=== PATIENT | female | born 1945 | race American Indian/Alaskan Native ===

== ENCOUNTER 2019-03-27 15:28 | Emergency (ER) | payer MEDICARE ==
[~2019-03-27] VITALS: Ht 157.5 cm; Wt 89.0 kg
[~2019-03-27 15:28] MED LIST: ASPI-1264 PO; CARCD120C PO; CYAN-51 PO; FEXO180T94 PO; OMEP20TA23 PO; UBID60CA6 PO
[2019-03-27 15:53] LABS: BASOPHILS # (AUTO) 0.1 X10'3 (0-0.2); BASOPHILS % (AUTO) 0.8 % (0-1); EOSINOPHILS # (AUTO) 0.2 X10'3 (0-0.9); EOSINOPHILS % (AUTO) 2.2 % (0-6); HEMATOCRIT 39.6 % (35.0-45.0); HEMOGLOBIN 13.5 g/dl (12.0-16.0); LYMPHOCYTES # (AUTO) 1.9 X10'3 (1.1-4.8); LYMPHOCYTES % (AUTO) 28.1 % (21-51); MEAN CORPUSCULAR HEMOGLOBIN 30.9 PG (27.0-31.0); MEAN CORPUSCULAR HGB CONC 34.1 g/dL (33.0-36.5); MEAN CORPUSCULAR VOLUME 90.5 FL (78-98); MEAN PLATELET VOLUME 8.4 FL (7.4-10.4); MONOCYTES # (AUTO) 0.6 X10'3 (0-0.9); MONOCYTES % (AUTO) 8.9 % (2-12); PLATELET COUNT 224 X10'3 (140-440); RED BLOOD COUNT 4.38 X10'6 (4.20-5.60); RED CELL DISTRIBUTION WIDTH 13.2 % (11.5-14.5); WHITE BLOOD COUNT 6.7 X10'3 (4.5-11.0)
[2019-03-27 16:04] VITALS: BP 126/65
[2019-03-27 16:10] LABS: ALANINE AMINOTRANSFERASE 29 U/L (12-78); ALBUMIN 3.7 G/DL (3.4-5.0); ALBUMIN/GLOBULIN RATIO 1.2 (1.1-1.5); ALKALINE PHOSPHATASE 69 IU/L (46-116); ANION GAP 8 (8-16); ASPARTATE AMINO TRANSFERASE 14 U/L (10-37); BILIRUBIN,TOTAL 0.3 MG/DL (0.1-1.0); BLOOD UREA NITROGEN 19 MG/DL (7-18); BUN/CREATININE RATIO 17.9 (6.6-38.0); CALCIUM 8.5 MG/DL (8.5-10.1); CHLORIDE 107 MMOL/L (99-107); CREATININE 1.06 MG/DL (0.40-0.90); GLUCOSE 143 MG/DL (70-104); MAGNESIUM 2.2 MG/DL (1.5-2.4); POTASSIUM 4.2 MMOL/L (3.5-5.1); SODIUM 142 MMOL/L (135-145); TOTAL CARBON DIOXIDE 27.4 MMOL/L (24-32); TOTAL PROTEIN 6.8 G/DL (6.4-8.2); eGFR 51 ML/MIN
== END 2019-03-27 18:00 | disposition home or self-care (01) ==
LOC: ER 15:28
DX: R07.89 Other chest pain (principal); I48.91 Unspecified atrial fibrillation; Z90.710 Acquired absence of both cervix and uterus; Z88.0 Allergy status to penicillin; Z91.018 Allergy to other foods; Z91.040 Latex allergy status; Z88.5 Allergy status to narcotic agent; Z79.82 Long term (current) use of aspirin; Z79.899 Other long term (current) drug therapy
CPT/HCPCS: 36415; 71045; 72070; 80053; 83735; 83880; 84484; 85025; 93005; 99284

== ENCOUNTER 2021-04-22 19:37 | Inpatient (IN) | payer MEDICARE ==
[~2021-04-22] VITALS: Ht 157.5 cm; Wt 79.3 kg
[~2021-04-22 19:37] MED LIST changes: -UBID60CA6 PO; +UBID60CA8 PO
[2021-04-22] MEDS ORDERED: dexamethasone 4mg/ml inj IV ONE (21:20)
[2021-04-22 22:00] LABS: BASOPHILS % (AUTO) 0.2 % (0-1); EOSINOPHILS % (AUTO) 0.3 % (0-6); HEMATOCRIT 39.9 % (35.0-45.0); HEMOGLOBIN 13.4 g/dl (12.0-16.0); LYMPHOCYTES # (AUTO) 0.4 X10'3 (1.1-4.8); LYMPHOCYTES % (AUTO) 4.1 % (21-51); MEAN CORPUSCULAR HEMOGLOBIN 30.8 PG (27.0-31.0); MEAN CORPUSCULAR HGB CONC 33.7 g/dL (33.0-36.5); MEAN CORPUSCULAR VOLUME 91.4 FL (78-98); MEAN PLATELET VOLUME 8.2 FL (7.4-10.4); MONOCYTES # (AUTO) 0.5 X10'3 (0-0.9); MONOCYTES % (AUTO) 6.4 % (2-12); NEUTROPHILS # (AUTO) 7.7 X10'3 (1.8-7.7); PLATELET COUNT 213 X10'3 (140-440); RED BLOOD COUNT 4.36 X10'6 (4.20-5.60); RED CELL DISTRIBUTION WIDTH 13.2 % (11.5-14.5); WHITE BLOOD COUNT 8.6 X10'3 (4.5-11.0)
[2021-04-22 22:06] LABS: D-DIMER 0.41 MG/L FEU (0-0.50)
[2021-04-22 23:01] LABS: CLARITY,URINE SLIGHTLY CLOUDY (Clear); COLOR,URINE YELLOW (Yellow); GLUCOSE, URINE NEGATIVE (Neg); KETONES,URINE 15 mg/dl (Neg); LEUKOCYTE ESTERASE ,URINE TRACE (Neg); NITRITES, URINE NEGATIVE (Neg); OCCULT BLOOD,URINE NEGATIVE (Neg); PROTEIN,URINE 100 mg/dl (Neg)
[2021-04-22 23:02] LABS: UA COLLECTION TYPE VOIDED
[2021-04-22] MEDS ORDERED: APIX2.5T PO (23:10)
[2021-04-22 23:23] LABS: ALANINE AMINOTRANSFERASE 26 U/L (12-78); ALBUMIN 3.2 G/DL (3.4-5.0); ALBUMIN/GLOBULIN RATIO 0.8 (1.1-1.5); ALKALINE PHOSPHATASE 79 IU/L (46-116); ANION GAP 12 (8-16); ASPARTATE AMINO TRANSFERASE 34 U/L (10-37); BILIRUBIN,TOTAL 0.4 MG/DL (0.1-1.0); BLOOD UREA NITROGEN 22 MG/DL (7-18); C-REACTIVE PROTEIN 18.34 MG/DL (0.0-0.5); CALCIUM 8.6 MG/DL (8.5-10.1); CHLORIDE 102 MMOL/L (99-107); CREATININE 1.16 MG/DL (0.40-0.90); GLUCOSE 126 MG/DL (70-104); LACTATE DEHYDROGENASE 285 U/L (81-234); MAGNESIUM 2.3 MG/DL (1.5-2.4); POTASSIUM 4.2 MMOL/L (3.5-5.1); SODIUM 138 MMOL/L (135-145); TOTAL CARBON DIOXIDE 24.4 MMOL/L (24-32); TOTAL PROTEIN 7.1 G/DL (6.4-8.2); eGFR 45 ML/MIN
[2021-04-22 23:28] LABS: MUCUS STRANDS MANY /LPF (Neg)
[2021-04-22 23:32] LABS: BACTERIA,URINE FEW /HPF (Neg); RBC,URINE NONE SEEN /HPF (0-2)
[2021-04-22 23:33] LABS: CAL OXALATE CRYSTALS 2+ /HPF (NEGATIVE); SQUAMOUS EPITHELIAL CELL,UR FEW /LPF (FEW)
[2021-04-23] MEDS ORDERED: CefTRIAXone/D5W-Rocephin 1gm 50 ML IV ONE (00:15)
[2021-04-23] MEDS ORDERED: REMDESIVIR INJ 100 MG in normal saline 100ml IV soln 80 ML IV SCH (00:15)
[2021-04-23] MEDS ORDERED: REMDESIVIR INJ 200 MG in normal saline 100ml IV soln 60 ML IV ONE (00:15)
[2021-04-23] MEDS ORDERED: ondansetron/PF 4mg/2ml inj IV PRN (00:30)
[2021-04-23] MEDS ORDERED: bisacodyl 10mg suppository rectal RC PRN (00:30)
[2021-04-23] MEDS: normal saline 1000ml 1,000 ML IV SCH ×3 (00:30→20:30)
[2021-04-23] MEDS ORDERED: acetaminophen 325mg tablet PO PRN (00:30)
[2021-04-23] MEDS ORDERED: ondansetron 4mg rapidly disintigrating tab PO PRN (00:30)
[2021-04-23] MEDS ORDERED: mag hydrox/Alum hydrox/simeth 30ml oral suspension PO PRN (00:30)
[2021-04-23] MEDS ORDERED: magnesium hydroxide 30ml (MOM) UD suspension PO PRN (00:30)
[2021-04-23] MEDS ORDERED: acetaminophen 650mg rectal suppository RC PRN (00:30)
[2021-04-23] MEDS ORDERED: ALBUTEROL INHALER 1 PUFF/90 MCG INHALER IH PRN (00:40)
--- NOTE | 2021-04-23 00:49 | NUR ---
PT NOTES THAT REACTION TO MORPHINE IS NAUSEA
[2021-04-23 05:53] LABS: HEMOGLOBIN A1C 5.5 % (4.5-6.2)
[2021-04-23] MEDS ORDERED: nitrofuran/nitrofuran macrocrysal 100 MG capsule PO SCH (08:00)
[2021-04-23] MEDS: apixaban 2.5mg tablet PO SCH ×2 (09:16→21:35)
[2021-04-23] MEDS: pantoprazole 40mg Tablet.DR PO SCH (09:17)
[2021-04-23] MEDS: diltiazem CD 120mg capsule (once-daily) PO SCH (09:17)
[2021-04-23] MEDS: docusate sod 100mg capsule PO SCH ×2 (09:17→20:00)
[2021-04-23] MEDS: CefTRIAXone/D5W-Rocephin 1gm 50 ML IV SCH (09:19)
[2021-04-23] MEDS: dexamethasone inj 6 MG in normal saline 50ml IV soln 50 ML IV SCH ×2 (09:19→22:21)
[2021-04-23] MEDS: REMDESIVIR 100 MG in NS 100ml IVPB IV SCH (12:24)
[2021-04-23 15:30] LABS: PARTIAL THROMBOPLASTIN TIME 28 SECONDS (22-32)
[2021-04-23 15:42] LABS: PHOSPHORUS 2.9 MG/DL (2.3-4.5)
--- NOTE | 2021-04-23 18:54 | NUR ---
pt spo2 85 on 6Lnc, placed in semi fowlers. placed pt on simple mask at 10L and pt had coughing episode and desat to 73 with rr 38. coached on slowing breathing down to help with recovery. pt spo2 83% with rr 28 and maintained for 10 minutes. placed pt on nrb at 15L. pt rr 26, spo2 88% and maintaining for 10 minutes. pt feels sob and taking shallow breathes to "prevent coughing". will continue to monitor and attempt to titrate o2 down.
--- NOTE | 2021-04-23 18:55 | NUR ---
ABG ORDERED PER PROTOCOL AND PAGED MD. SPO2 89% ON 15L NRB.
--- NOTE | 2021-04-23 19:47 | NUR ---
pt up to bsc. coughing episode started. pt desat to 62% on nrb. pt reports feels like "spasm in throat causing cough". pt recovered to 98% on 15L nrb
[2021-04-23] MEDS ORDERED: temazepam 15mg capsule PO PRN (21:00)
[2021-04-23 21:19] LABS: ABG BASE EXCESS -1.5 mmol/L (-2.0-2.0); ABG HCO3 22.2 mmol/L (22.0-26.0); ABG OXYGEN SATURATION 88.4 % (94-97); ABG PCO2 (T) 33.8 mmHg (32.0-45.0); ABG PO2 (T) 52.8 mmHg (75.0-100.0); FCOHb 0.3 % (0.0-3.9); FLOW 15 L/min; FMetHb 0.2 % (0.0-1.5); PATIENT TEMPERATURE 36.7; TOTAL HEMOGLOBIN 13.1 G/dl (12.0-16.0)
[2021-04-23] MEDS: lactobacillus rhamnosus 10,000 MMU CELLS/CAPSULE PO SCH (21:36)
--- NOTE | 2021-04-23 22:00 | NUR ---
CALLED PHARMACY REGARDING DECADRON NOT DELIVERED TO ER YET. PHARMACY TO BRING DOWN
[2021-04-24 04:24] LABS: BASOPHILS % (AUTO) 0.1 % (0-1); EOSINOPHILS % (AUTO) 0 % (0-6); HEMATOCRIT 39.5 % (35.0-45.0); LYMPHOCYTES # (AUTO) 0.5 X10'3 (1.1-4.8); LYMPHOCYTES % (AUTO) 3.7 % (21-51); MEAN CORPUSCULAR HGB CONC 32.8 g/dL (33.0-36.5); MEAN CORPUSCULAR VOLUME 91.5 FL (78-98); MEAN PLATELET VOLUME 8.3 FL (7.4-10.4); MONOCYTES # (AUTO) 0.7 X10'3 (0-0.9); MONOCYTES % (AUTO) 5.2 % (2-12); NEUTROPHILS # (AUTO) 12.6 X10'3 (1.8-7.7); PLATELET COUNT 261 X10'3 (140-440); RED BLOOD COUNT 4.32 X10'6 (4.20-5.60); RED CELL DISTRIBUTION WIDTH 13.2 % (11.5-14.5); WHITE BLOOD COUNT 13.8 X10'3 (4.5-11.0)
[2021-04-24 04:34] LABS: ALANINE AMINOTRANSFERASE 24 U/L (12-78); ALBUMIN 2.8 G/DL (3.4-5.0); ALBUMIN/GLOBULIN RATIO 0.8 (1.1-1.5); ALKALINE PHOSPHATASE 75 IU/L (46-116); ANION GAP 9 (8-16); ASPARTATE AMINO TRANSFERASE 26 U/L (10-37); BILIRUBIN,TOTAL 0.2 MG/DL (0.1-1.0); BLOOD UREA NITROGEN 23 MG/DL (7-18); BUN/CREATININE RATIO 23.7 (6.6-38.0); CALCIUM 8.4 MG/DL (8.5-10.1); CHLORIDE 107 MMOL/L (99-107); CHOL/HDL RATIO 3.4 (0.00-4.99); CHOLESTEROL 182 MG/DL (0-200); CREATININE 0.97 MG/DL (0.40-0.90); GLUCOSE 142 MG/DL (70-104); HDL CHOLESTEROL 53 MG/DL (35-60); LDL CHOLESTEROL 108 MG/DL (50-100); POTASSIUM 4.5 MMOL/L (3.5-5.1); SODIUM 143 MMOL/L (135-145); TOTAL CARBON DIOXIDE 26.6 MMOL/L (24-32); TOTAL PROTEIN 6.5 G/DL (6.4-8.2); TRIGLYCERIDES 55 MG/DL (20-135); eGFR 56 ML/MIN
[2021-04-24] MEDS: docusate sod 100mg capsule PO SCH ×2 (09:39→20:00)
[2021-04-24] MEDS: pantoprazole 40mg Tablet.DR PO SCH (09:39)
[2021-04-24] MEDS: dexamethasone inj 6 MG in normal saline 50ml IV soln 50 ML IV SCH ×2 (09:39→21:16)
[2021-04-24] MEDS: diltiazem CD 120mg capsule (once-daily) PO SCH (09:39)
[2021-04-24] MEDS: CefTRIAXone/D5W-Rocephin 1gm 50 ML IV SCH (09:39)
[2021-04-24] MEDS: lactobacillus rhamnosus 10,000 MMU CELLS/CAPSULE PO SCH (09:39)
[2021-04-24] MEDS ORDERED: potassium Cl 40MEQ/1/2NS 520ml 520 ML IV PRN (10:10)
[2021-04-24] MEDS ORDERED: magnesium 4gm in 100ml NS 100 ML IV PRN (10:10)
[2021-04-24] MEDS ORDERED: potassium Cl 20 mEq SR tablet PO PRN ×2 (10:10)
[2021-04-24] MEDS ORDERED: magnesium Cl slow-release 64mg tablet PO PRN (10:10)
[2021-04-24] MEDS: apixaban 2.5mg tablet PO SCH ×2 (10:14→21:16)
[2021-04-24] MEDS: REMDESIVIR 100 MG in NS 100ml IVPB IV SCH (11:48)
--- NOTE | 2021-04-24 13:05 | NUR ---
RT notified of decreased oxygen level. RT at bedside requesting order for high flow. paged awaiting call
--- NOTE | 2021-04-24 17:35 | NUR ---
RECEIVED REPORT FROM LOURDES PANCHAL
[2021-04-24 18:00] VITALS: BP 141/75
--- NOTE | 2021-04-24 18:13 | NUR ---
GAVE REPORT TO November,
[2021-04-24] MEDS: K and/or MAG REPLACEMENT MC SCH (20:00)
[2021-04-24 21:00] VITALS: BP 130/77
[2021-04-25 01:00] VITALS: BP 113/74
[2021-04-25 05:00] VITALS: BP 139/75
[2021-04-25 05:41] LABS: BASOPHILS # (AUTO) 0.1 X10'3 (0-0.2); BASOPHILS % (AUTO) 1.1 % (0-1); EOSINOPHILS % (AUTO) 0 % (0-6); HEMATOCRIT 39.3 % (35.0-45.0); HEMOGLOBIN 13.1 g/dl (12.0-16.0); LYMPHOCYTES # (AUTO) 0.5 X10'3 (1.1-4.8); LYMPHOCYTES % (AUTO) 4.3 % (21-51); MEAN CORPUSCULAR HEMOGLOBIN 30.3 PG (27.0-31.0); MEAN CORPUSCULAR HGB CONC 33.2 g/dL (33.0-36.5); MEAN CORPUSCULAR VOLUME 91.1 FL (78-98); MEAN PLATELET VOLUME 8.7 FL (7.4-10.4); MONOCYTES # (AUTO) 0.4 X10'3 (0-0.9); MONOCYTES % (AUTO) 3.6 % (2-12); NEUTROPHILS # (AUTO) 10.8 X10'3 (1.8-7.7); PLATELET COUNT 283 X10'3 (140-440); RED BLOOD COUNT 4.31 X10'6 (4.20-5.60); RED CELL DISTRIBUTION WIDTH 13.2 % (11.5-14.5); WHITE BLOOD COUNT 11.9 X10'3 (4.5-11.0)
[2021-04-25 06:13] LABS: ALANINE AMINOTRANSFERASE 27 U/L (12-78); ALBUMIN 2.6 G/DL (3.4-5.0); ALBUMIN/GLOBULIN RATIO 0.7 (1.1-1.5); ALKALINE PHOSPHATASE 76 IU/L (46-116); ANION GAP 8 (8-16); ASPARTATE AMINO TRANSFERASE 29 U/L (10-37); BILIRUBIN,TOTAL 0.2 MG/DL (0.1-1.0); BLOOD UREA NITROGEN 28 MG/DL (7-18); CALCIUM 8.4 MG/DL (8.5-10.1); CHLORIDE 109 MMOL/L (99-107); CREATININE 1.12 MG/DL (0.40-0.90); GLUCOSE 145 MG/DL (70-104); MAGNESIUM 2.3 MG/DL (1.5-2.4); PHOSPHORUS 3.5 MG/DL (2.3-4.5); POTASSIUM 4.7 MMOL/L (3.5-5.1); SODIUM 144 MMOL/L (135-145); TOTAL CARBON DIOXIDE 27.4 MMOL/L (24-32); TOTAL PROTEIN 6.2 G/DL (6.4-8.2); eGFR 47 ML/MIN
[2021-04-25 06:36] LABS: D-DIMER 0.53 MG/L FEU (0-0.50)
--- NOTE | 2021-04-25 06:54 | NUR ---
Patient in room ORTHO 4006. I have received report from LOURDES AMEZCUA and had the opportunity to ask questions and assume patient care.
[2021-04-25 07:21] LABS: LACTATE DEHYDROGENASE 313 U/L (81-234)
[2021-04-25] MEDS: K and/or MAG REPLACEMENT MC SCH ×2 (08:00→20:00)
[2021-04-25] MEDS ORDERED: CefTRIAXone/D5W-Rocephin 1gm 50 ML IV SCH (08:00)
[2021-04-25] MEDS: diltiazem CD 120mg capsule (once-daily) PO SCH (09:06)
[2021-04-25] MEDS: dexamethasone inj 6 MG in normal saline 50ml IV soln 50 ML IV SCH ×2 (09:06→20:52)
[2021-04-25] MEDS: docusate sod 100mg capsule PO SCH ×2 (09:06→20:52)
[2021-04-25] MEDS: pantoprazole 40mg Tablet.DR PO SCH (09:07)
[2021-04-25] MEDS: apixaban 2.5mg tablet PO SCH ×2 (09:07→20:52)
[2021-04-25 10:00] VITALS: BP 110/63
--- NOTE | 2021-04-25 11:20 | NUR ---
Malnutrition consult: Pt admitted w/ Covid and SOB/fatigue x 3days per EMR. Per MST, pt unsure of wt loss and has had a decrease in appetite. Discussed w/ RN, no wt loss reported by pt, though they are currently NPO. Per ED noted, pt WD/WN. No visible signs of facial wasting observed. No edema noted. At this time, pt does not meet minimum criteria for malnutrition. Will continue to monitor. Addendum: 04/25/21 at [address] Amended: Links added.
[2021-04-25] MEDS: REMDESIVIR 100 MG in NS 100ml IVPB IV SCH (13:49)
[2021-04-25 14:00] VITALS: BP 154/54
[2021-04-25] MEDS: acetaminophen 325mg tablet PO PRN (16:31)
--- NOTE | 2021-04-25 16:39 | NUR ---
Page Sent PAGER ID: [phone] MESSAGE: MARCIO [phone] RE: CESARIO HERRERA [phone] CAN I HAVE AN ORDER FOR TELE MONITORING FOR PT? SHE IS RUNNING A-FIB AND NEEDS CONTINUOUS PULSE OX. THANK YOU!
--- NOTE | 2021-04-25 18:29 | NUR ---
Problems reprioritized. Patient report given, questions answered & plan of care reviewed with LOURDES POLK.
[2021-04-25 22:00] VITALS: BP 121/58
[2021-04-26 02:00] VITALS: BP 109/59
[2021-04-26 06:00] VITALS: BP 112/61
[2021-04-26 06:34] LABS: BASOPHILS # (AUTO) 0.1 X10'3 (0-0.2); BASOPHILS % (AUTO) 0.5 % (0-1); EOSINOPHILS % (AUTO) 0.1 % (0-6); HEMATOCRIT 40.1 % (35.0-45.0); HEMOGLOBIN 13.1 g/dl (12.0-16.0); LYMPHOCYTES # (AUTO) 0.6 X10'3 (1.1-4.8); LYMPHOCYTES % (AUTO) 4.4 % (21-51); MEAN CORPUSCULAR HEMOGLOBIN 29.8 PG (27.0-31.0); MEAN CORPUSCULAR HGB CONC 32.7 g/dL (33.0-36.5); MEAN CORPUSCULAR VOLUME 91.1 FL (78-98); MEAN PLATELET VOLUME 8.1 FL (7.4-10.4); NEUTROPHILS # (AUTO) 12.3 X10'3 (1.8-7.7); PLATELET COUNT 323 X10'3 (140-440); WHITE BLOOD COUNT 13.9 X10'3 (4.5-11.0)
--- NOTE | 2021-04-26 06:41 | NUR ---
Patient in room ORTHO 4006. I have received report from LOURDES Almazna and had the opportunity to ask questions and assume patient care.
[2021-04-26 06:44] LABS: D-DIMER 1.57 MG/L FEU (0-0.50)
[2021-04-26 06:49] LABS: ALANINE AMINOTRANSFERASE 42 U/L (12-78); ALBUMIN 2.5 G/DL (3.4-5.0); ALBUMIN/GLOBULIN RATIO 0.7 (1.1-1.5); ALKALINE PHOSPHATASE 84 IU/L (46-116); ANION GAP 9 (8-16); ASPARTATE AMINO TRANSFERASE 37 U/L (10-37); BILIRUBIN,TOTAL 0.4 MG/DL (0.1-1.0); BLOOD UREA NITROGEN 28 MG/DL (7-18); BUN/CREATININE RATIO 28.3 (6.6-38.0); C-REACTIVE PROTEIN 4.39 MG/DL (0.0-0.5); CALCIUM 8.3 MG/DL (8.5-10.1); CHLORIDE 109 MMOL/L (99-107); CREATININE 0.99 MG/DL (0.40-0.90); GLUCOSE 120 MG/DL (70-104); LACTATE DEHYDROGENASE 622 U/L (81-234); MAGNESIUM 2.3 MG/DL (1.5-2.4); PHOSPHORUS 3.6 MG/DL (2.3-4.5); POTASSIUM 4.5 MMOL/L (3.5-5.1); SODIUM 144 MMOL/L (135-145); TOTAL CARBON DIOXIDE 25.8 MMOL/L (24-32); eGFR 55 ML/MIN
[2021-04-26] MEDS: K and/or MAG REPLACEMENT MC SCH ×2 (08:00→19:38)
[2021-04-26] MEDS: apixaban 2.5mg tablet PO SCH ×2 (08:32→19:41)
[2021-04-26] MEDS: pantoprazole 40mg Tablet.DR PO SCH (08:32)
[2021-04-26] MEDS: diltiazem CD 120mg capsule (once-daily) PO SCH (08:32)
[2021-04-26] MEDS: docusate sod 100mg capsule PO SCH ×2 (08:32→19:41)
[2021-04-26] MEDS: dexamethasone inj 6 MG in normal saline 50ml IV soln 50 ML IV SCH ×2 (08:32→19:41)
[2021-04-26 10:00] VITALS: BP 113/57
[2021-04-26] MEDS: REMDESIVIR 100 MG in NS 100ml IVPB IV SCH (12:33)
[2021-04-26] MEDS: acetaminophen 325mg tablet PO PRN (12:37)
[2021-04-26] MEDS: lactose-reduced food (Ensure Enlive) - 237ml bottle PO SCH ×2 (13:09→18:00)
[2021-04-26 14:00] VITALS: BP 99/51
--- NOTE | 2021-04-26 14:51 | NUR ---
RN TC: Ensure Enlive ONS ordered to start TIDWM to assist w/ pt protein/kcal intake. 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 RN reports pt reporting drinks ensures at home and tolerates without allergic response. Dietary notified okay to send TIDWM. Addendum: 04/26/21 at [address] Amended: Links added.
[2021-04-26 18:00] VITALS: BP 92/63
--- NOTE | 2021-04-26 18:43 | NUR ---
Problems reprioritized. Patient report given,LOURDES escalona questions answered & plan of care reviewed with .
--- NOTE | 2021-04-26 18:49 | NUR ---
Patient in room ORTHO 4006. I have received report from Bia FREED and had the opportunity to ask questions and assume patient care.
[2021-04-26] MEDS: HYDROcodone/acetaminophen 5mg/325mg tablet PO PRN (20:11)
[2021-04-26 22:00] VITALS: BP 105/67
[2021-04-27] VITALS (8 sets, daily range): BP systolic 103–129; BP diastolic 50–76
--- NOTE | 2021-04-27 03:30 | NUR ---
Pt desats often to the high 70's low 80's. I encouraged her to lay on her side as well as prone. She is on 40L HFNC as well as 15L nonrebreather. RT is following and said the next step would be Bipap. As of now the patient recovered well and is at 90% will continue to monitor.
--- NOTE | 2021-04-27 06:41 | NUR ---
Problems reprioritized. Patient report given, questions answered & plan of care reviewed with Rocío FREED.
--- NOTE | 2021-04-27 07:00 | NUR ---
Patient in room ORTHO 4006. I have received report from Malaika FREED and had the opportunity to ask questions and assume patient care.
[2021-04-27 07:37] LABS: BASOPHILS # (AUTO) 0.1 X10'3 (0-0.2); BASOPHILS % (AUTO) 0.3 % (0-1); EOSINOPHILS % (AUTO) 0 % (0-6); HEMATOCRIT 41.3 % (35.0-45.0); HEMOGLOBIN 13.6 g/dl (12.0-16.0); LYMPHOCYTES # (AUTO) 0.4 X10'3 (1.1-4.8); LYMPHOCYTES % (AUTO) 2.4 % (21-51); MEAN CORPUSCULAR HEMOGLOBIN 29.7 PG (27.0-31.0); MEAN CORPUSCULAR VOLUME 90.1 FL (78-98); MEAN PLATELET VOLUME 8.2 FL (7.4-10.4); MONOCYTES # (AUTO) 0.6 X10'3 (0-0.9); MONOCYTES % (AUTO) 3.7 % (2-12); NEUTROPHILS # (AUTO) 15.2 X10'3 (1.8-7.7); NEUTROPHILS % (AUTO) 93.6 % (42-75); PLATELET COUNT 301 X10'3 (140-440); RED BLOOD COUNT 4.58 X10'6 (4.20-5.60); RED CELL DISTRIBUTION WIDTH 13.1 % (11.5-14.5); WHITE BLOOD COUNT 16.2 X10'3 (4.5-11.0)
[2021-04-27 07:54] LABS: D-DIMER 8.91 MG/L FEU (0-0.50)
[2021-04-27 07:56] LABS: ALANINE AMINOTRANSFERASE 68 U/L (12-78); ALBUMIN 2.4 G/DL (3.4-5.0); ALBUMIN/GLOBULIN RATIO 0.6 (1.1-1.5); ALKALINE PHOSPHATASE 96 IU/L (46-116); ANION GAP 7 (8-16); ASPARTATE AMINO TRANSFERASE 47 U/L (10-37); BILIRUBIN,TOTAL 0.5 MG/DL (0.1-1.0); BLOOD UREA NITROGEN 26 MG/DL (7-18); BUN/CREATININE RATIO 26.8 (6.6-38.0); C-REACTIVE PROTEIN 8.85 MG/DL (0.0-0.5); CALCIUM 8.2 MG/DL (8.5-10.1); CHLORIDE 108 MMOL/L (99-107); CREATININE 0.97 MG/DL (0.40-0.90); GLUCOSE 129 MG/DL (70-104); LACTATE DEHYDROGENASE 498 U/L (81-234); MAGNESIUM 2.6 MG/DL (1.5-2.4); PHOSPHORUS 3.6 MG/DL (2.3-4.5); POTASSIUM 4.4 MMOL/L (3.5-5.1); SODIUM 141 MMOL/L (135-145); TOTAL CARBON DIOXIDE 26.4 MMOL/L (24-32); TOTAL PROTEIN 6.1 G/DL (6.4-8.2); eGFR 56 ML/MIN
[2021-04-27] MEDS: lactose-reduced food (Ensure Enlive) - 237ml bottle PO SCH ×3 (08:00→18:40)
[2021-04-27] MEDS: K and/or MAG REPLACEMENT MC SCH ×2 (08:00→20:00)
[2021-04-27] MEDS: docusate sod 100mg capsule PO SCH ×2 (09:20→21:43)
[2021-04-27] MEDS: diltiazem CD 120mg capsule (once-daily) PO SCH (09:21)
[2021-04-27] MEDS: HYDROcodone/acetaminophen 5mg/325mg tablet PO PRN ×2 (09:21→15:51)
[2021-04-27] MEDS: apixaban 2.5mg tablet PO SCH (09:21)
[2021-04-27] MEDS: pantoprazole 40mg Tablet.DR PO SCH (09:21)
[2021-04-27] MEDS: dexamethasone inj 6 MG in normal saline 50ml IV soln 50 ML IV SCH (09:22)
--- NOTE | 2021-04-27 11:00 | NUR ---
Dr. Gates at bedside with patient and nurse. would liek to transfer pt to ICU for closer observations and more support. Pt continues to drop to low 80s. Pt maxed on all oxygen measures. We will continue to monitor.
[2021-04-27] MEDS: HYDROmorphone inj. 0.5 MG/0.5 ML DISP.SYRIN IV PRN ×2 (11:10→15:52)
--- NOTE | 2021-04-27 14:07 | NUR ---
Initial: Pt admit DX COVID-19 bilateral PNA, acute respiratory failure, UTI, and acute renal failure improving w/ hydration per MD note. Currently on high flow 40L/min per EMR. PO steadily improving from initial meal refusals to ~25% avg up to 50% at lunch today. Ensure Enlive PO 50% avg past 3. Partially meeting needs given overall meal trends. LBM 04/23 diarrhea w/ no current GI symptoms noted per EMR. May benefit from routine bowel care if MD agreeable. Will continue to monitor for further PO trends and additional protein/kcal needs this admit. Rec: 1. continue regular diet; encourage PO 2. ensure enlive TIDWM; encourage PO. Severe corn allergy but pt reports drinks ensures at home without allergic reaction; only corn syrup in ONS not corn protein 3. routine bowel care; no BM 4 days follolwing prior diarrhea 04/23 4. scaled wt this admit; subsequent weekly wts Addendum: 04/27/21 at [address] Amended: Links added.
[2021-04-27] MEDS: methylPREDNISolone sod succ 125mg/2ml vial IV SCH (15:52)
--- NOTE | 2021-04-27 17:43 | NUR ---
Pt is to transfer to ICU after shift change to room 2010.
--- NOTE | 2021-04-27 18:29 | NUR ---
Problems reprioritized. Patient report given, questions answered & plan of care reviewed with Malaika FREED.
--- NOTE | 2021-04-27 18:35 | NUR ---
Patient in room ORTHO 4006. I have received report from Rocío FREED and had the opportunity to ask questions and assume patient care.
--- NOTE | 2021-04-27 19:05 | NUR ---
Spoke to patient, she okayed be to give an update to son Rodolfo and Owen. Pt states her daughter is still the main line of contact.
--- NOTE | 2021-04-27 19:41 | NUR ---
Problems reprioritized. Patient report given, questions answered & plan of care reviewed with Mare FREED.
--- NOTE | 2021-04-27 20:32 | NUR ---
Pt transfered to 2009 with RN and clinic charge nurse. Pt tolerated well, receiving RN and respiratory at bedside. All belongings sent with pt.
--- NOTE | 2021-04-27 20:35 | NUR ---
Rec'd pt in ICU on hi-flow NC and 100% NRBM. no dyspnea noted. Dr. Sotelo at bedside to see.
[2021-04-27 21:11] LABS: ABG BASE EXCESS -0.4 mmol/L (-2.0-2.0); ABG HCO3 22.1 mmol/L (22.0-26.0); ABG OXYGEN SATURATION 94.2 % (94-97); ABG PCO2 (T) 29.6 mmHg (32.0-45.0); ABG PO2 (T) 66.2 mmHg (75.0-100.0); ALLEN'S TEST POSITIVE; FLOW 40 L/min; FMetHb 0.2 % (0.0-1.5); PATIENT TEMPERATURE 36.3; TOTAL HEMOGLOBIN 14.6 G/dl (12.0-16.0)
--- NOTE | 2021-04-27 21:20 | NUR ---
#16F f/c placed with clear, yellow urine obtained
[2021-04-27] MEDS: enoxaparin 60mg/0.6ml syringe SUBCUT SCH (21:43)
[2021-04-27] MEDS: enoxaparin 30mg/0.3ml syringe SUBCUT SCH (21:44)
[2021-04-28] VITALS (22 sets, daily range): BP systolic 93–117; BP diastolic 56–71
[2021-04-28] MEDS: methylPREDNISolone sod succ 125mg/2ml vial IV SCH ×3 (00:02→15:54)
[2021-04-28] MEDS: HYDROcodone/acetaminophen 5mg/325mg tablet PO PRN ×2 (01:39→15:02)
[2021-04-28] MEDS: diphenhydrAMINE 50 mg/ml inj IV PRN (02:13)
[2021-04-28 06:20] LABS: BASOPHILS % (AUTO) 0.2 % (0-1); EOSINOPHILS % (AUTO) 0 % (0-6); HEMATOCRIT 40.8 % (35.0-45.0); HEMOGLOBIN 13.6 g/dl (12.0-16.0); LYMPHOCYTES # (AUTO) 0.4 X10'3 (1.1-4.8); LYMPHOCYTES % (AUTO) 2.1 % (21-51); MEAN CORPUSCULAR HEMOGLOBIN 30.1 PG (27.0-31.0); MEAN CORPUSCULAR HGB CONC 33.2 g/dL (33.0-36.5); MEAN CORPUSCULAR VOLUME 90.7 FL (78-98); MEAN PLATELET VOLUME 7.6 FL (7.4-10.4); MONOCYTES # (AUTO) 0.4 X10'3 (0-0.9); NEUTROPHILS # (AUTO) 17.7 X10'3 (1.8-7.7); NEUTROPHILS % (AUTO) 95.7 % (42-75); PLATELET COUNT 219 X10'3 (140-440); RED CELL DISTRIBUTION WIDTH 13.2 % (11.5-14.5); WHITE BLOOD COUNT 18.5 X10'3 (4.5-11.0)
[2021-04-28 06:37] LABS: D-DIMER 26.46 MG/L FEU (0-0.50)
[2021-04-28 06:51] LABS: BURR CELLS FEW; PLATELET ESTIMATE NORMAL; TOTAL CELLS COUNTED 100
[2021-04-28 06:52] LABS: ALANINE AMINOTRANSFERASE 44 U/L (12-78); ALBUMIN 2.2 G/DL (3.4-5.0); ALBUMIN/GLOBULIN RATIO 0.6 (1.1-1.5); ALKALINE PHOSPHATASE 102 IU/L (46-116); ANION GAP 6 (8-16); ASPARTATE AMINO TRANSFERASE 27 U/L (10-37); BILIRUBIN,TOTAL 0.4 MG/DL (0.1-1.0); BLOOD UREA NITROGEN 32 MG/DL (7-18); C-REACTIVE PROTEIN 11.42 MG/DL (0.0-0.5); CHLORIDE 105 MMOL/L (99-107); GLUCOSE 143 MG/DL (70-104); LACTATE DEHYDROGENASE 507 U/L (81-234); MAGNESIUM 2.5 MG/DL (1.5-2.4); PHOSPHORUS 3.7 MG/DL (2.3-4.5); POTASSIUM 4.7 MMOL/L (3.5-5.1); SODIUM 136 MMOL/L (135-145); TOTAL CARBON DIOXIDE 25.4 MMOL/L (24-32); TOTAL PROTEIN 5.8 G/DL (6.4-8.2); eGFR 54 ML/MIN
[2021-04-28] MEDS: lactose-reduced food (Ensure Enlive) - 237ml bottle PO SCH ×3 (08:00→18:00)
[2021-04-28] MEDS: K and/or MAG REPLACEMENT MC SCH ×2 (08:00→20:00)
[2021-04-28] MEDS: pantoprazole 40mg Tablet.DR PO SCH (08:25)
[2021-04-28] MEDS: diltiazem CD 120mg capsule (once-daily) PO SCH (08:25)
[2021-04-28] MEDS: docusate sod 100mg capsule PO SCH ×2 (08:25→20:59)
[2021-04-28] MEDS: enoxaparin 60mg/0.6ml syringe SUBCUT SCH ×2 (08:26→20:58)
[2021-04-28] MEDS: enoxaparin 30mg/0.3ml syringe SUBCUT SCH ×2 (08:26→20:57)
--- NOTE | 2021-04-28 11:30 | NUR ---
Patient has been wearing HFNC 40L and 100% Fi02, and NRB at 15L. O2 sats mostly 87-90% but started to drop more frequently to 84-85%. Assisted patient into prone position. O2 sats improved to 95-99%, removed NRB, O2 sats remain 92-94%.
--- NOTE | 2021-04-28 12:31 | NUR ---
F/u: Noted pt with documented LBM 04/21, receiving routine Colace BID with additional PRN bowel care available though not given. D/w dietary to send prunes and prune juice with next meal to assist with bowel regularity. Will continue to follow closely. Addendum: 04/28/21 at [address] Amended: Links added.
[2021-04-28] MEDS: diphenhydrAMINE 25mg capsule PO PRN (15:02)
[2021-04-29] VITALS (23 sets, daily range): BP systolic 83–122; BP diastolic 52–79
[2021-04-29] MEDS: methylPREDNISolone sod succ 125mg/2ml vial IV SCH ×4 (00:21→23:57)
[2021-04-29] MEDS: HYDROcodone/acetaminophen 5mg/325mg tablet PO PRN (02:51)
[2021-04-29] MEDS: diphenhydrAMINE 25mg capsule PO PRN (02:51)
[2021-04-29 07:12] LABS: D-DIMER 20.28 MG/L FEU (0-0.50)
[2021-04-29 07:18] LABS: C-REACTIVE PROTEIN 8.23 MG/DL (0.0-0.5); LACTATE DEHYDROGENASE 609 U/L (81-234); MAGNESIUM 2.6 MG/DL (1.5-2.4); PHOSPHORUS 3.3 MG/DL (2.3-4.5)
[2021-04-29] MEDS: K and/or MAG REPLACEMENT MC SCH ×2 (08:00→20:00)
[2021-04-29] MEDS: enoxaparin 60mg/0.6ml syringe SUBCUT SCH ×2 (08:18→22:47)
[2021-04-29] MEDS: pantoprazole 40mg Tablet.DR PO SCH (08:18)
[2021-04-29] MEDS: diltiazem CD 120mg capsule (once-daily) PO SCH (08:18)
[2021-04-29] MEDS: docusate sod 100mg capsule PO SCH ×2 (08:18→20:40)
[2021-04-29] MEDS: lactose-reduced food (Ensure Enlive) - 237ml bottle PO SCH ×3 (08:18→18:00)
[2021-04-29] MEDS: enoxaparin 30mg/0.3ml syringe SUBCUT SCH ×2 (08:18→20:40)
[2021-04-29 08:48] LABS: ALANINE AMINOTRANSFERASE 37 U/L (12-78); ALBUMIN 2.2 G/DL (3.4-5.0); ALBUMIN/GLOBULIN RATIO 0.6 (1.1-1.5); ALKALINE PHOSPHATASE 110 IU/L (46-116); ANION GAP 13 (8-16); ASPARTATE AMINO TRANSFERASE 31 U/L (10-37); BILIRUBIN,TOTAL 0.4 MG/DL (0.1-1.0); BLOOD UREA NITROGEN 35 MG/DL (7-18); BUN/CREATININE RATIO 31.8 (6.6-38.0); CALCIUM 8.2 MG/DL (8.5-10.1); CHLORIDE 105 MMOL/L (99-107); GLUCOSE 138 MG/DL (70-104); POTASSIUM 4.5 MMOL/L (3.5-5.1); SODIUM 143 MMOL/L (135-145); TOTAL CARBON DIOXIDE 25.5 MMOL/L (24-32); TOTAL PROTEIN 5.8 G/DL (6.4-8.2); eGFR 48 ML/MIN
--- NOTE | 2021-04-29 11:48 | NUR ---
Cami Gomez granddaughter okay for information.
[2021-04-29] MEDS: diphenhydrAMINE 50 mg/ml inj IV PRN (14:52)
[2021-04-29] MEDS: HYDROmorphone inj. 0.5 MG/0.5 ML DISP.SYRIN IV PRN (14:52)
[2021-04-30] VITALS (22 sets, daily range): BP systolic 92–131; BP diastolic 53–77
[2021-04-30] MEDS: HYDROcodone/acetaminophen 5mg/325mg tablet PO PRN ×2 (01:12→06:46)
[2021-04-30] MEDS: HYDROmorphone inj. 0.5 MG/0.5 ML DISP.SYRIN IV PRN ×2 (04:24→08:11)
--- NOTE | 2021-04-30 06:20 | NUR ---
Patient in room CICU 2009. I have received report from LOURDES Cohen and had the opportunity to ask questions and assume patient care.
[2021-04-30] MEDS: diphenhydrAMINE 50 mg/ml inj IV PRN (06:46)
[2021-04-30] MEDS: pantoprazole 40mg Tablet.DR PO SCH (07:30)
[2021-04-30] MEDS: K and/or MAG REPLACEMENT MC SCH ×2 (08:00→20:00)
[2021-04-30] MEDS: methylPREDNISolone sod succ 125mg/2ml vial IV SCH ×2 (08:11→15:16)
[2021-04-30] MEDS: enoxaparin 60mg/0.6ml syringe SUBCUT SCH ×2 (08:11→20:54)
[2021-04-30] MEDS: enoxaparin 30mg/0.3ml syringe SUBCUT SCH ×2 (08:12→20:54)
[2021-04-30] MEDS: diltiazem CD 120mg capsule (once-daily) PO SCH (08:37)
[2021-04-30] MEDS: docusate sod 100mg capsule PO SCH ×2 (08:38→20:00)
[2021-04-30] MEDS: lactose-reduced food (Ensure Enlive) - 237ml bottle PO SCH ×3 (08:38→18:00)
[2021-04-30] MEDS ORDERED: HYDROmorphone 1 mg/ml syringe IV PRN (10:00)
[2021-04-30] MEDS: HYDROmorphone 1 mg/ml syringe IV SCH ×5 (10:05→20:53)
[2021-05-01] VITALS (24 sets, daily range): BP systolic 96–120; BP diastolic 52–76
[2021-05-01] MEDS: methylPREDNISolone sod succ 125mg/2ml vial IV SCH ×2 (00:34→07:39)
[2021-05-01] MEDS: HYDROmorphone 1 mg/ml syringe IV SCH ×8 (00:35→20:40)
--- NOTE | 2021-05-01 06:15 | NUR ---
Patient in room CICU 2009. I have received report from Malaika FREED and had the opportunity to ask questions and assume patient care.
--- NOTE | 2021-05-01 06:44 | NUR ---
Problems reprioritized. Patient report given, questions answered & plan of care reviewed with LOURDES Ferrara.
[2021-05-01] MEDS: diltiazem CD 120mg capsule (once-daily) PO SCH (07:39)
[2021-05-01] MEDS: pantoprazole 40mg Tablet.DR PO SCH (07:39)
[2021-05-01] MEDS: docusate sod 100mg capsule PO SCH ×2 (07:39→20:40)
[2021-05-01] MEDS: lactose-reduced food (Ensure Enlive) - 237ml bottle PO SCH ×3 (07:40→18:01)
[2021-05-01] MEDS: enoxaparin 60mg/0.6ml syringe SUBCUT SCH ×2 (07:40→20:40)
[2021-05-01] MEDS: enoxaparin 30mg/0.3ml syringe SUBCUT SCH ×2 (07:40→20:39)
[2021-05-01 07:42] LABS: D-DIMER 5.93 MG/L FEU (0-0.50)
[2021-05-01] MEDS: K and/or MAG REPLACEMENT MC SCH ×2 (08:00→20:00)
--- NOTE | 2021-05-01 11:37 | NUR ---
F/u 05/01: Pt PO remains poor 0-25% avg regular diet since admit 7 days w/ ~44% avg ensure enlive TIDWM not meeting needs. Currently on 40L/min 100% FiO2 per RN. Noted last BM following diarrhea 04/23 8 days receiving Q3H IV dilaudid per EMR; SNEHA d/w sampler ovens. Pt receiving routine colace w/ PRN dulcolax last given 04/30; may benefit from additional bowel care. Constipation likely impacting PO trends as well. Given poor nutrition intake 7 days, BLE +2 edema, and mild weakness pt meets severe malnutrition criteria; MD notified. Will continue to monitor for additional protein/kcal needs this admit. Rec: 1. continue regular diet; encourage PO 2. ensure enlive TIDWM; encourage PO. Severe corn allergy but pt reports drinks ensures at home without allergic reaction; only corn syrup in ONS not corn protein 3. routine bowel care; no BM 8 days following prior diarrhea 04/23 4. scaled wt this admit; subsequent weekly wts 5. Consider supplemental nutrition via NG to meet needs given poor intake hx this admit on high flow oxygen IF MD agreeable Addendum: 05/01/21 at [address] Amended: Links added.
[2021-05-01] MEDS: diphenhydrAMINE 25mg capsule PO PRN (12:08)
[2021-05-01] MEDS: methylPREDNISolone sod succ/PF 40mg inj. IV SCH (15:10)
--- NOTE | 2021-05-01 18:39 | NUR ---
Problems reprioritized. Patient report given, questions answered & plan of care reviewed with Rabia FREED.
[2021-05-02] VITALS (24 sets, daily range): BP systolic 98–120; BP diastolic 53–86
[2021-05-02] MEDS: methylPREDNISolone sod succ/PF 40mg inj. IV SCH ×3 (00:19→15:23)
[2021-05-02] MEDS: HYDROmorphone 1 mg/ml syringe IV SCH ×8 (03:00→21:33)
[2021-05-02 05:59] LABS: BASOPHILS # (AUTO) 0.1 X10'3 (0-0.2); BASOPHILS % (AUTO) 0.2 % (0-1); EOSINOPHILS % (AUTO) 0 % (0-6); HEMATOCRIT 42.1 % (35.0-45.0); HEMOGLOBIN 13.8 g/dl (12.0-16.0); LYMPHOCYTES # (AUTO) 0.2 X10'3 (1.1-4.8); LYMPHOCYTES % (AUTO) 1.1 % (21-51); MEAN CORPUSCULAR HEMOGLOBIN 30.2 PG (27.0-31.0); MEAN CORPUSCULAR HGB CONC 32.8 g/dL (33.0-36.5); MEAN CORPUSCULAR VOLUME 92.2 FL (78-98); MEAN PLATELET VOLUME 8.2 FL (7.4-10.4); MONOCYTES # (AUTO) 0.3 X10'3 (0-0.9); MONOCYTES % (AUTO) 1.3 % (2-12); NEUTROPHILS # (AUTO) 21.6 X10'3 (1.8-7.7); NEUTROPHILS % (AUTO) 97.4 % (42-75); PLATELET COUNT 216 X10'3 (140-440); RED BLOOD COUNT 4.57 X10'6 (4.20-5.60); RED CELL DISTRIBUTION WIDTH 13.3 % (11.5-14.5); WHITE BLOOD COUNT 22.2 X10'3 (4.5-11.0)
[2021-05-02 06:10] LABS: ALANINE AMINOTRANSFERASE 40 U/L (12-78); ALBUMIN/GLOBULIN RATIO 0.6 (1.1-1.5); ALKALINE PHOSPHATASE 231 IU/L (46-116); ANION GAP 4 (8-16); ASPARTATE AMINO TRANSFERASE 53 U/L (10-37); BILIRUBIN,TOTAL 0.4 MG/DL (0.1-1.0); BLOOD UREA NITROGEN 40 MG/DL (7-18); BUN/CREATININE RATIO 40.8 (6.6-38.0); C-REACTIVE PROTEIN 6.77 MG/DL (0.0-0.5); CALCIUM 8.3 MG/DL (8.5-10.1); CHLORIDE 106 MMOL/L (99-107); CREATININE 0.98 MG/DL (0.40-0.90); GLUCOSE 132 MG/DL (70-104); POTASSIUM 4.7 MMOL/L (3.5-5.1); SODIUM 140 MMOL/L (135-145); TOTAL PROTEIN 5.6 G/DL (6.4-8.2); eGFR 55 ML/MIN
[2021-05-02 06:14] LABS: D-DIMER 6.48 MG/L FEU (0-0.50)
--- NOTE | 2021-05-02 06:33 | NUR ---
Problems reprioritized. Patient report given, questions answered & plan of care reviewed with Silvio.
--- NOTE | 2021-05-02 06:52 | NUR ---
Patient in room CICU 2009. I have received report from Rabia FREED and had the opportunity to ask questions and assume patient care.
[2021-05-02 07:42] LABS: PLATELET ESTIMATE NORMAL; TOTAL CELLS COUNTED 100
[2021-05-02] MEDS: pantoprazole 40mg Tablet.DR PO SCH (07:58)
[2021-05-02] MEDS: docusate sod 100mg capsule PO SCH ×2 (07:58→20:18)
[2021-05-02] MEDS: diltiazem CD 120mg capsule (once-daily) PO SCH (07:58)
[2021-05-02] MEDS: enoxaparin 60mg/0.6ml syringe SUBCUT SCH ×2 (07:58→20:17)
[2021-05-02] MEDS: enoxaparin 30mg/0.3ml syringe SUBCUT SCH ×2 (07:59→20:17)
[2021-05-02] MEDS: lactose-reduced food (Ensure Enlive) - 237ml bottle PO SCH ×3 (08:00→18:00)
[2021-05-02] MEDS: acetaminophen 325mg tablet PO PRN (08:00)
[2021-05-02] MEDS: K and/or MAG REPLACEMENT MC SCH ×2 (08:00→20:00)
[2021-05-02] MEDS ORDERED: amiodarone 150mg/dext, iso-os 100 ML IV ONE (12:35)
[2021-05-02] MEDS: amiodarone/D5 360MG/200ML BAG 200 ML IV SCH ×2 (13:26→18:54)
--- NOTE | 2021-05-02 18:24 | NUR ---
Problems reprioritized. Patient report given, questions answered & plan of care reviewed with Rabia FREED.
[2021-05-03] VITALS (23 sets, daily range): BP systolic 99–120; BP diastolic 48–79
[2021-05-03] MEDS: methylPREDNISolone sod succ/PF 40mg inj. IV SCH ×3 (00:16→16:51)
[2021-05-03] MEDS: amiodarone/D5 360MG/200ML BAG 200 ML IV SCH ×4 (00:57→20:15)
--- NOTE | 2021-05-03 01:43 | NUR ---
Pt getting confused, asked me to keep Anuja out of the room? I adjusted her position and repositioned her 02 mask. Pt seems restless and not happy about being prone, but usually goes in into the 88-90s when in this position and drops into the lower 80s while sitting up. 114/66, 104, 91%, 19, 37.1
[2021-05-03] MEDS: HYDROmorphone 1 mg/ml syringe IV SCH ×4 (03:00→09:00)
[2021-05-03] MEDS: acetaminophen 325mg tablet PO PRN ×2 (04:25→15:37)
[2021-05-03 06:17] LABS: C-REACTIVE PROTEIN 4.29 MG/DL (0.0-0.5)
[2021-05-03 06:39] LABS: D-DIMER 8.19 MG/L FEU (0-0.50)
--- NOTE | 2021-05-03 06:47 | NUR ---
Problems reprioritized. Patient report given, questions answered & plan of care reviewed with Jordan.
[2021-05-03] MEDS: K and/or MAG REPLACEMENT MC SCH ×2 (07:57→20:00)
[2021-05-03] MEDS: diltiazem CD 120mg capsule (once-daily) PO SCH ×2 (09:03→20:22)
[2021-05-03] MEDS: enoxaparin 30mg/0.3ml syringe SUBCUT SCH ×2 (09:04→20:20)
[2021-05-03] MEDS: pantoprazole 40mg Tablet.DR PO SCH (09:04)
[2021-05-03] MEDS: docusate sod 100mg capsule PO SCH ×2 (09:04→20:21)
[2021-05-03] MEDS: enoxaparin 60mg/0.6ml syringe SUBCUT SCH ×2 (09:05→20:21)
[2021-05-03] MEDS: lactose-reduced food (Ensure Enlive) - 237ml bottle PO SCH ×3 (09:05→17:40)
[2021-05-03 10:16] LABS: ALANINE AMINOTRANSFERASE 55 U/L (12-78); ALBUMIN 1.9 G/DL (3.4-5.0); ALBUMIN/GLOBULIN RATIO 0.5 (1.1-1.5); ALKALINE PHOSPHATASE 280 IU/L (46-116); ANION GAP 7 (8-16); ASPARTATE AMINO TRANSFERASE 54 U/L (10-37); BILIRUBIN,TOTAL 0.3 MG/DL (0.1-1.0); BLOOD UREA NITROGEN 37 MG/DL (7-18); BUN/CREATININE RATIO 43.5 (6.6-38.0); CALCIUM 7.9 MG/DL (8.5-10.1); CHLORIDE 103 MMOL/L (99-107); CREATININE 0.85 MG/DL (0.40-0.90); GLUCOSE 126 MG/DL (70-104); MAGNESIUM 2.6 MG/DL (1.5-2.4); PHOSPHORUS 3.3 MG/DL (2.3-4.5); POTASSIUM 4.6 MMOL/L (3.5-5.1); SODIUM 139 MMOL/L (135-145); TOTAL CARBON DIOXIDE 29.4 MMOL/L (24-32); TOTAL PROTEIN 5.4 G/DL (6.4-8.2); eGFR 65 ML/MIN
--- NOTE | 2021-05-03 18:30 | NUR ---
Patient in room CICU 2009. I have received report from Antonio FREED and had the opportunity to ask questions and assume patient care
--- NOTE | 2021-05-03 18:34 | NUR ---
Problems reprioritized. Patient report given, questions answered & plan of care reviewed with Xochitl FREED.
[2021-05-04] VITALS (24 sets, daily range): BP systolic 90–119; BP diastolic 47–81
[2021-05-04] MEDS: methylPREDNISolone sod succ/PF 40mg inj. IV SCH ×3 (00:32→16:14)
[2021-05-04] MEDS: amiodarone/D5 360MG/200ML BAG 200 ML IV SCH ×2 (00:59→15:34)
[2021-05-04 03:31] LABS: BASOPHILS # (AUTO) 0.1 X10'3 (0-0.2); BASOPHILS % (AUTO) 0.3 % (0-1); EOSINOPHILS % (AUTO) 0 % (0-6); HEMATOCRIT 40.7 % (35.0-45.0); HEMOGLOBIN 13.4 g/dl (12.0-16.0); LYMPHOCYTES # (AUTO) 0.3 X10'3 (1.1-4.8); LYMPHOCYTES % (AUTO) 1.1 % (21-51); MEAN CORPUSCULAR HEMOGLOBIN 29.7 PG (27.0-31.0); MEAN CORPUSCULAR HGB CONC 32.8 g/dL (33.0-36.5); MEAN CORPUSCULAR VOLUME 90.5 FL (78-98); MONOCYTES # (AUTO) 0.2 X10'3 (0-0.9); MONOCYTES % (AUTO) 0.7 % (2-12); NEUTROPHILS # (AUTO) 22.1 X10'3 (1.8-7.7); NEUTROPHILS % (AUTO) 97.9 % (42-75); PLATELET COUNT 192 X10'3 (140-440); RED CELL DISTRIBUTION WIDTH 13.4 % (11.5-14.5); WHITE BLOOD COUNT 22.5 X10'3 (4.5-11.0)
[2021-05-04 03:50] LABS: D-DIMER 7.28 MG/L FEU (0-0.50)
[2021-05-04 05:27] LABS: ALANINE AMINOTRANSFERASE 67 U/L (12-78); ALBUMIN 1.8 G/DL (3.4-5.0); ALBUMIN/GLOBULIN RATIO 0.5 (1.1-1.5); ALKALINE PHOSPHATASE 344 IU/L (46-116); ANION GAP 6 (8-16); ASPARTATE AMINO TRANSFERASE 58 U/L (10-37); BILIRUBIN,TOTAL 0.3 MG/DL (0.1-1.0); BLOOD UREA NITROGEN 29 MG/DL (7-18); BUN/CREATININE RATIO 33.7 (6.6-38.0); C-REACTIVE PROTEIN 3.35 MG/DL (0.0-0.5); CALCIUM 7.4 MG/DL (8.5-10.1); CHLORIDE 106 MMOL/L (99-107); CREATININE 0.86 MG/DL (0.40-0.90); GLUCOSE 149 MG/DL (70-104); MAGNESIUM 2.3 MG/DL (1.5-2.4); SODIUM 141 MMOL/L (135-145); TOTAL CARBON DIOXIDE 28.8 MMOL/L (24-32); TOTAL PROTEIN 5.2 G/DL (6.4-8.2); eGFR 64 ML/MIN
[2021-05-04 05:30] LABS: POTASSIUM 4.3 MMOL/L (3.5-5.1)
--- NOTE | 2021-05-04 06:40 | NUR ---
Problems reprioritized. Patient report given, questions answered & plan of care reviewed with Maryuri FREED.
[2021-05-04] MEDS: K and/or MAG REPLACEMENT MC SCH ×2 (08:00→20:00)
[2021-05-04] MEDS: pantoprazole 40mg Tablet.DR PO SCH (08:19)
[2021-05-04] MEDS: diltiazem CD 120mg capsule (once-daily) PO SCH ×2 (08:19→20:45)
[2021-05-04] MEDS: docusate sod 100mg capsule PO SCH ×2 (08:19→20:45)
[2021-05-04] MEDS: enoxaparin 30mg/0.3ml syringe SUBCUT SCH ×2 (08:19→20:43)
[2021-05-04] MEDS: lactose-reduced food (Ensure Enlive) - 237ml bottle PO SCH ×3 (08:20→18:35)
[2021-05-04] MEDS: enoxaparin 60mg/0.6ml syringe SUBCUT SCH ×2 (09:27→20:45)
--- NOTE | 2021-05-04 12:07 | NUR ---
Reassessment: Patient's PO intake has slightly improved with consistent 25% PO intake of meals and mostly 100% PO intake of ONS TID. Combined PO intake of meals and ONS is meeting patient's estimated nutrient needs at this time using IBW +10% to calculate estimated nutrient needs as current documented wt isn't scaled. LBM 05/02, receiving routine Colace and received PRN Dulcolax suppository 04/30. No further nutrition intervention implemented at this time. Will continue to follow. Rec: 1. Continue regular diet; encourage PO 2. Ensure Enlive TIDWM; encourage PO. Severe corn allergy but pt reports drinks ensures at home without allergic reaction; only corn syrup in ONS not corn protein 3. routine bowel care 4. scaled wt this admit; subsequent weekly wts 5. Consider supplemental nutrition via NG to meet needs IF PO intake declines given poor intake hx this admit on high flow oxygen IF MD agreeable Addendum: 05/04/21 at [address] Amended: Links added.
--- NOTE | 2021-05-04 18:20 | NUR ---
Patient in room CICU 2009. I have received report from Maryuri FREED, and had the opportunity to ask questions and assume patient care.
[2021-05-04] MEDS ORDERED: amiodarone 200mg tablet PO SCH (20:00)
[2021-05-04] MEDS: acetaminophen 325mg tablet PO PRN (20:48)
[2021-05-04] MEDS: amiodarone 200mg tablet PO SCH (20:50)
[2021-05-05] VITALS (24 sets, daily range): BP systolic 88–128; BP diastolic 34–84
[2021-05-05] MEDS: methylPREDNISolone sod succ/PF 40mg inj. IV SCH ×4 (01:39→23:23)
[2021-05-05] MEDS: acetaminophen 325mg tablet PO PRN ×3 (03:01→21:17)
[2021-05-05 06:34] LABS: BASOPHILS % (AUTO) 0.1 % (0-1); EOSINOPHILS % (AUTO) 0 % (0-6); HEMATOCRIT 40.6 % (35.0-45.0); HEMOGLOBIN 13.4 g/dl (12.0-16.0); LYMPHOCYTES # (AUTO) 0.2 X10'3 (1.1-4.8); LYMPHOCYTES % (AUTO) 0.8 % (21-51); MEAN CORPUSCULAR HEMOGLOBIN 29.9 PG (27.0-31.0); MEAN CORPUSCULAR VOLUME 90.7 FL (78-98); MEAN PLATELET VOLUME 8.8 FL (7.4-10.4); MONOCYTES # (AUTO) 0.2 X10'3 (0-0.9); MONOCYTES % (AUTO) 0.9 % (2-12); NEUTROPHILS # (AUTO) 24.8 X10'3 (1.8-7.7); NEUTROPHILS % (AUTO) 98.2 % (42-75); PLATELET COUNT 222 X10'3 (140-440); RED BLOOD COUNT 4.48 X10'6 (4.20-5.60); RED CELL DISTRIBUTION WIDTH 13.4 % (11.5-14.5)
[2021-05-05 06:35] LABS: WHITE BLOOD COUNT 25.3 X10'3 (4.5-11.0)
[2021-05-05 06:47] LABS: ALANINE AMINOTRANSFERASE 77 U/L (12-78); ALBUMIN/GLOBULIN RATIO 0.6 (1.1-1.5); ALKALINE PHOSPHATASE 402 IU/L (46-116); ANION GAP 3 (8-16); ASPARTATE AMINO TRANSFERASE 56 U/L (10-37); BILIRUBIN,TOTAL 0.4 MG/DL (0.1-1.0); BLOOD UREA NITROGEN 34 MG/DL (7-18); BUN/CREATININE RATIO 36.6 (6.6-38.0); C-REACTIVE PROTEIN 2.94 MG/DL (0.0-0.5); CALCIUM 8.2 MG/DL (8.5-10.1); CHLORIDE 106 MMOL/L (99-107); CREATININE 0.93 MG/DL (0.40-0.90); GLUCOSE 127 MG/DL (70-104); MAGNESIUM 2.7 MG/DL (1.5-2.4); PHOSPHORUS 3.6 MG/DL (2.3-4.5); POTASSIUM 4.5 MMOL/L (3.5-5.1); SODIUM 140 MMOL/L (135-145); TOTAL CARBON DIOXIDE 30.9 MMOL/L (24-32); TOTAL PROTEIN 5.4 G/DL (6.4-8.2); eGFR 59 ML/MIN
[2021-05-05 06:58] LABS: PLATELET ESTIMATE NORMAL; TOTAL CELLS COUNTED 100
[2021-05-05 07:12] LABS: D-DIMER 3.67 MG/L FEU (0-0.50)
[2021-05-05] MEDS: K and/or MAG REPLACEMENT MC SCH ×2 (08:00→20:00)
[2021-05-05] MEDS: enoxaparin 30mg/0.3ml syringe SUBCUT SCH ×2 (09:23→21:25)
[2021-05-05] MEDS: diltiazem CD 120mg capsule (once-daily) PO SCH ×2 (09:23→21:16)
[2021-05-05] MEDS: docusate sod 100mg capsule PO SCH ×2 (09:24→20:00)
[2021-05-05] MEDS: amiodarone 200mg tablet PO SCH ×2 (09:24→21:16)
[2021-05-05] MEDS: enoxaparin 60mg/0.6ml syringe SUBCUT SCH ×2 (09:24→21:25)
[2021-05-05] MEDS: lactose-reduced food (Ensure Enlive) - 237ml bottle PO SCH ×3 (09:26→18:00)
[2021-05-05] MEDS: pantoprazole 40mg Tablet.DR PO SCH (09:39)
--- NOTE | 2021-05-05 15:40 | NUR ---
TF consult: Patient's PO intake fluctuates with 0-25% PO intake of meals and average 59% of ONS over the last 4 days. Per MD pt to get an NG tube placed and start supplemental TF. Recommendations below will not fully meet estimated nutrient needs as pt will continue with PO diet. Will continue to follow closely. Rec: 1. Continue regular diet; encourage PO intake 2. Ensure Enlive TIDWM; Severe corn allergy but pt reports drinks Ensures at home without allergic reaction; only corn syrup in ONS not corn protein 3. Once NG tube placed, supplemental TF via NG tube using Vital AF with goal rate of 40 mL/hr to provide 960 mL total volume/day, 1152 kcal, 72 g protein, and 779 mL water; monitor need for adjustments 4. No additional water flushes at this time as pt will continue with PO diet; monitor need for adjustments 5. Prealbumin q Saturday/ 6. Routine bowel care 7. Daily scaled weight Addendum: 05/05/21 at [address] Amended: Links added.
--- NOTE | 2021-05-05 19:00 | NUR ---
Patient in room CICU 2009. I have received report from Maryuri Thibodeaux RN and had the opportunity to ask questions and assume patient care.
[2021-05-05] MEDS: Chloraseptic (Phenol) Spray 177ml MM PRN (22:19)
[2021-05-06] VITALS (24 sets, daily range): BP systolic 97–125; BP diastolic 56–71
[2021-05-06 06:46] LABS: BASOPHILS # (AUTO) 0.1 X10'3 (0-0.2); BASOPHILS % (AUTO) 0.4 % (0-1); EOSINOPHILS % (AUTO) 0 % (0-6); HEMOGLOBIN 13.4 g/dl (12.0-16.0); LYMPHOCYTES # (AUTO) 0.3 X10'3 (1.1-4.8); LYMPHOCYTES % (AUTO) 1.1 % (21-51); MEAN CORPUSCULAR HEMOGLOBIN 29.8 PG (27.0-31.0); MEAN CORPUSCULAR HGB CONC 32.6 g/dL (33.0-36.5); MEAN CORPUSCULAR VOLUME 91.3 FL (78-98); MEAN PLATELET VOLUME 8.9 FL (7.4-10.4); MONOCYTES # (AUTO) 0.2 X10'3 (0-0.9); MONOCYTES % (AUTO) 0.9 % (2-12); NEUTROPHILS # (AUTO) 22.4 X10'3 (1.8-7.7); NEUTROPHILS % (AUTO) 97.6 % (42-75); PLATELET COUNT 236 X10'3 (140-440); RED BLOOD COUNT 4.48 X10'6 (4.20-5.60); RED CELL DISTRIBUTION WIDTH 13.6 % (11.5-14.5)
[2021-05-06 06:53] LABS: D-DIMER 2.58 MG/L FEU (0-0.50)
[2021-05-06 07:04] LABS: ALANINE AMINOTRANSFERASE 81 U/L (12-78); ALBUMIN 2.1 G/DL (3.4-5.0); ALBUMIN/GLOBULIN RATIO 0.6 (1.1-1.5); ALKALINE PHOSPHATASE 405 IU/L (46-116); ANION GAP 6 (8-16); ASPARTATE AMINO TRANSFERASE 43 U/L (10-37); BILIRUBIN,TOTAL 0.4 MG/DL (0.1-1.0); BLOOD UREA NITROGEN 35 MG/DL (7-18); BUN/CREATININE RATIO 40.7 (6.6-38.0); C-REACTIVE PROTEIN 1.73 MG/DL (0.0-0.5); CALCIUM 8.4 MG/DL (8.5-10.1); CHLORIDE 110 MMOL/L (99-107); CREATININE 0.86 MG/DL (0.40-0.90); GLUCOSE 137 MG/DL (70-104); MAGNESIUM 2.7 MG/DL (1.5-2.4); PHOSPHORUS 4.1 MG/DL (2.3-4.5); POTASSIUM 4.5 MMOL/L (3.5-5.1); SODIUM 147 MMOL/L (135-145); TOTAL PROTEIN 5.5 G/DL (6.4-8.2); eGFR 64 ML/MIN
[2021-05-06] MEDS: lactose-reduced food (Ensure Enlive) - 237ml bottle PO SCH ×3 (08:23→18:00)
[2021-05-06] MEDS: amiodarone 200mg tablet PO SCH (08:24)
[2021-05-06] MEDS: pantoprazole 40mg Tablet.DR PO SCH (08:24)
[2021-05-06] MEDS: diltiazem CD 120mg capsule (once-daily) PO SCH (08:24)
[2021-05-06] MEDS: methylPREDNISolone sod succ/PF 40mg inj. IV SCH ×3 (08:24→23:39)
[2021-05-06] MEDS: docusate sod 100mg capsule PO SCH (08:24)
[2021-05-06] MEDS: enoxaparin 30mg/0.3ml syringe SUBCUT SCH ×2 (08:25→19:49)
[2021-05-06] MEDS: enoxaparin 60mg/0.6ml syringe SUBCUT SCH ×2 (08:25→19:50)
[2021-05-06] MEDS: K and/or MAG REPLACEMENT MC SCH ×2 (08:56→20:00)
[2021-05-06] MEDS: acetaminophen 325mg tablet PO PRN (13:04)
--- NOTE | 2021-05-06 13:06 | NUR ---
Patient in room CICU 2009. I have received report from Maryuri FREED and had the opportunity to ask questions and assume patient care.
[2021-05-06] MEDS ORDERED: acetaminophen 325mg tablet NG PRN (13:35)
[2021-05-06] MEDS ORDERED: temazepam 15mg capsule NG PRN (13:38)
[2021-05-06] MEDS ORDERED: mag hydrox/Alum hydrox/simeth 30ml oral suspension NG PRN (13:38)
[2021-05-06] MEDS ORDERED: magnesium hydroxide 30ml (MOM) UD suspension NG PRN (13:39)
[2021-05-06] MEDS ORDERED: ondansetron 4mg rapidly disintigrating tab NG PRN (13:39)
[2021-05-06] MEDS ORDERED: dextrose 50%-water 50ml dispensing syringe IV PRN ×2 (17:00)
[2021-05-06] MEDS ORDERED: MESSAGE TO PHARMACY PO ONE (17:00)
[2021-05-06] MEDS ORDERED: glucagon, human recombinant 1mg kit SUBCUT PRN (17:00)
[2021-05-06] MEDS ORDERED: dextrose ORAL solution 15 GM/59 ML bottle PO PRN ×2 (17:00)
[2021-05-06] MEDS: acetaminophen 325mg tablet NG PRN (17:25)
--- NOTE | 2021-05-06 18:21 | NUR ---
Problems reprioritized. Patient report given, questions answered & plan of care reviewed with Lili FREED.
--- NOTE | 2021-05-06 18:22 | NUR ---
Patient in room CICU 2009. I have received report from Scarlet FREED, and had the opportunity to ask questions and assume patient care.
[2021-05-06] MEDS: amiodarone 200mg tablet NG SCH (19:47)
[2021-05-06] MEDS: docusate sodium 100mg/10ml UD cup NG SCH (19:47)
[2021-05-06] MEDS: diltiazem 30mg tablet PO SCH (19:49)
[2021-05-06] MEDS ORDERED: diltiazem 30mg tablet NG SCH (20:00)
[2021-05-06] MEDS: insulin glargine (Lantus) pen - multi-dose SQ SCH (21:36)
[2021-05-07] VITALS (24 sets, daily range): BP systolic 99–133; BP diastolic 56–78
--- NOTE | 2021-05-07 06:30 | NUR ---
Problems reprioritized. Patient report given to Chayito FREED, questions answered & plan of care reviewed with [].
[2021-05-07 06:49] LABS: ALANINE AMINOTRANSFERASE 86 U/L (12-78); ALBUMIN/GLOBULIN RATIO 0.6 (1.1-1.5); ALKALINE PHOSPHATASE 376 IU/L (46-116); ANION GAP 5 (8-16); ASPARTATE AMINO TRANSFERASE 35 U/L (10-37); BILIRUBIN,TOTAL 0.3 MG/DL (0.1-1.0); BLOOD UREA NITROGEN 41 MG/DL (7-18); BUN/CREATININE RATIO 42.7 (6.6-38.0); CALCIUM 8.4 MG/DL (8.5-10.1); CHLORIDE 110 MMOL/L (99-107); CREATININE 0.96 MG/DL (0.40-0.90); GLUCOSE 160 MG/DL (70-104); MAGNESIUM 2.7 MG/DL (1.5-2.4); PHOSPHORUS 3.4 MG/DL (2.3-4.5); POTASSIUM 4.6 MMOL/L (3.5-5.1); SODIUM 147 MMOL/L (135-145); TOTAL CARBON DIOXIDE 31.9 MMOL/L (24-32); TOTAL PROTEIN 5.5 G/DL (6.4-8.2); eGFR 57 ML/MIN
[2021-05-07 06:54] LABS: BASOPHILS # (AUTO) 0.1 X10'3 (0-0.2); BASOPHILS % (AUTO) 0.3 % (0-1); EOSINOPHILS % (AUTO) 0 % (0-6); HEMATOCRIT 40.3 % (35.0-45.0); HEMOGLOBIN 13.5 g/dl (12.0-16.0); LYMPHOCYTES # (AUTO) 0.2 X10'3 (1.1-4.8); LYMPHOCYTES % (AUTO) 0.9 % (21-51); MEAN CORPUSCULAR HEMOGLOBIN 30.4 PG (27.0-31.0); MEAN CORPUSCULAR HGB CONC 33.6 g/dL (33.0-36.5); MEAN CORPUSCULAR VOLUME 90.4 FL (78-98); MEAN PLATELET VOLUME 8.6 FL (7.4-10.4); MONOCYTES # (AUTO) 0.3 X10'3 (0-0.9); MONOCYTES % (AUTO) 1.2 % (2-12); NEUTROPHILS % (AUTO) 97.6 % (42-75); PLATELET COUNT 235 X10'3 (140-440); RED BLOOD COUNT 4.45 X10'6 (4.20-5.60); RED CELL DISTRIBUTION WIDTH 13.5 % (11.5-14.5); WHITE BLOOD COUNT 24.6 X10'3 (4.5-11.0)
[2021-05-07 07:28] LABS: TOTAL CELLS COUNTED 100
[2021-05-07 07:30] LABS: ELLIPTOCYTES FEW; PLATELET ESTIMATE NORMAL; TEAR DROP CELLS FEW
[2021-05-07] MEDS: docusate sodium 100mg/10ml UD cup NG SCH ×2 (07:59→21:22)
[2021-05-07] MEDS: enoxaparin 30mg/0.3ml syringe SUBCUT SCH ×2 (08:00→21:25)
[2021-05-07] MEDS: enoxaparin 60mg/0.6ml syringe SUBCUT SCH ×2 (08:00→21:25)
[2021-05-07] MEDS: lactose-reduced food (Ensure Enlive) - 237ml bottle PO SCH ×3 (08:00→18:25)
[2021-05-07] MEDS: amiodarone 200mg tablet NG SCH ×2 (08:01→21:23)
[2021-05-07] MEDS: diltiazem 30mg tablet PO SCH ×2 (08:02→21:24)
[2021-05-07] MEDS: K and/or MAG REPLACEMENT MC SCH ×2 (08:11→20:00)
[2021-05-07] MEDS: methylPREDNISolone sod succ/PF 40mg inj. IV SCH ×2 (08:15→15:53)
[2021-05-07] MEDS: pantoprazole 40 MG vial IV SCH (08:15)
[2021-05-07] MEDS: acetaminophen 325mg tablet NG PRN ×2 (10:25→17:06)
[2021-05-07] MEDS: Chloraseptic (Phenol) Spray 177ml MM PRN ×2 (12:45→17:09)
[2021-05-07 16:05] LABS: D-DIMER 2.36 MG/L FEU (0-0.50)
--- NOTE | 2021-05-07 18:15 | NUR ---
Patient in room CICU 2009. I have received report from LOURDES Stratton and had the opportunity to ask questions and assume patient care.
[2021-05-07] MEDS: insulin glargine (Lantus) pen - multi-dose SQ SCH (21:00)
[2021-05-07] MEDS: morphine 2 MG/ML inj. syringe IV PRN (22:47)
[2021-05-08] VITALS (19 sets, daily range): BP systolic 93–122; BP diastolic 46–74
[2021-05-08] MEDS: methylPREDNISolone sod succ/PF 40mg inj. IV SCH ×3 (00:24→21:46)
[2021-05-08] MEDS: Chloraseptic (Phenol) Spray 177ml MM PRN ×2 (04:38→10:19)
[2021-05-08] MEDS: acetaminophen 325mg tablet NG PRN ×2 (04:39→16:25)
--- NOTE | 2021-05-08 06:16 | NUR ---
Problems reprioritized. Patient report given, questions answered & plan of care reviewed with [Chayito FREED].
[2021-05-08 06:49] LABS: BASOPHILS # (AUTO) 0.1 X10'3 (0-0.2); BASOPHILS % (AUTO) 0.5 % (0-1); EOSINOPHILS % (AUTO) 0.1 % (0-6); HEMATOCRIT 40.5 % (35.0-45.0); HEMOGLOBIN 13.2 g/dl (12.0-16.0); LYMPHOCYTES # (AUTO) 0.2 X10'3 (1.1-4.8); LYMPHOCYTES % (AUTO) 0.9 % (21-51); MEAN CORPUSCULAR HEMOGLOBIN 29.8 PG (27.0-31.0); MEAN CORPUSCULAR HGB CONC 32.6 g/dL (33.0-36.5); MEAN CORPUSCULAR VOLUME 91.5 FL (78-98); MEAN PLATELET VOLUME 8.7 FL (7.4-10.4); MONOCYTES # (AUTO) 0.3 X10'3 (0-0.9); MONOCYTES % (AUTO) 1.3 % (2-12); NEUTROPHILS # (AUTO) 23.2 X10'3 (1.8-7.7); NEUTROPHILS % (AUTO) 97.2 % (42-75); PLATELET COUNT 227 X10'3 (140-440); RED BLOOD COUNT 4.43 X10'6 (4.20-5.60); RED CELL DISTRIBUTION WIDTH 13.6 % (11.5-14.5); WHITE BLOOD COUNT 23.8 X10'3 (4.5-11.0)
[2021-05-08 07:15] LABS: ALANINE AMINOTRANSFERASE 90 U/L (12-78); ALBUMIN/GLOBULIN RATIO 0.6 (1.1-1.5); ALKALINE PHOSPHATASE 339 IU/L (46-116); ANION GAP 5 (8-16); ASPARTATE AMINO TRANSFERASE 34 U/L (10-37); BILIRUBIN,TOTAL 0.3 MG/DL (0.1-1.0); BLOOD UREA NITROGEN 40 MG/DL (7-18); BUN/CREATININE RATIO 43.5 (6.6-38.0); C-REACTIVE PROTEIN 0.44 MG/DL (0.0-0.5); CALCIUM 8.3 MG/DL (8.5-10.1); CHLORIDE 109 MMOL/L (99-107); CREATININE 0.92 MG/DL (0.40-0.90); GLUCOSE 137 MG/DL (70-104); MAGNESIUM 2.6 MG/DL (1.5-2.4); PHOSPHORUS 3.5 MG/DL (2.3-4.5); POTASSIUM 4.9 MMOL/L (3.5-5.1); PREALBUMIN 28.9 MG/DL (19-36); SODIUM 143 MMOL/L (135-145); TOTAL CARBON DIOXIDE 28.6 MMOL/L (24-32); TOTAL PROTEIN 5.4 G/DL (6.4-8.2); eGFR 59 ML/MIN
[2021-05-08] MEDS: pantoprazole 40 MG vial IV SCH (07:43)
[2021-05-08] MEDS: enoxaparin 30mg/0.3ml syringe SUBCUT SCH ×2 (07:44→21:49)
[2021-05-08] MEDS: enoxaparin 60mg/0.6ml syringe SUBCUT SCH ×2 (07:44→21:49)
[2021-05-08] MEDS: amiodarone 200mg tablet NG SCH ×2 (07:45→21:47)
[2021-05-08] MEDS: lactose-reduced food (Ensure Enlive) - 237ml bottle PO SCH ×3 (07:46→18:30)
[2021-05-08] MEDS: diltiazem 30mg tablet PO SCH ×2 (07:46→21:59)
[2021-05-08] MEDS: K and/or MAG REPLACEMENT MC SCH ×2 (08:00→20:00)
[2021-05-08] MEDS: docusate sodium 100mg/10ml UD cup NG SCH ×2 (08:00→21:46)
[2021-05-08] MEDS: morphine 2 MG/ML inj. syringe IV PRN (10:19)
--- NOTE | 2021-05-08 11:29 | NUR ---
F/u 05/08: Pt NG placed and tolerating supplemental EN at goal GRV WNL. PO 0-25% mostly regular diet w/ 75-100% Ensure Enlives meeting needs w/ EN supplementation. Small/smears for BM's documented since admit 15 days; SNEHA d/w policy analyst. First PALB 28.9 WNL at this time also on solumedrol. Current Vital AF out of stock and to substitute using Glucerna 1.2 at prior goal rate since Vital High Protein contains corn oil; RD reviewed w/ policy analyst who is agreeable best to play it safe. RD notified dietary and pt RN of appropriate substitution options. Will continue to monitor. Rec: 1. Continue regular diet; encourage PO intake 2. Ensure Enlive TIDWM; Severe corn allergy but pt reports drinks Ensures at home without allergic reaction; only corn syrup in ONS not corn protein 3. Continuous supplemental TF via NG tube using Vital AF at 40 mL/hr goal to provide 960mL total volume/day, 1152 kcal, 72g protein, and 779mL water; monitor need for adjustments 4. IF out of Vital AF; Substitute using Glucerna 1.2 at 40ml/hr and NOT Vital High Protein as contains corn oil w/ severe allergy. Would provide 960ml volume/day, 1152 kcals, 779ml water, and 58g protein. 5. No additional water flushes at this time as pt will continue with PO diet; monitor need for adjustments 6. Prealbumin q Saturday/; daily wts 7. Routine bowel care; possible 15 days constipation Addendum: 05/08/21 at [address] Amended: Links added.
[2021-05-08] MEDS: bisacodyl 10mg suppository rectal RC SCH (13:48)
[2021-05-08] MEDS: polyethylene glycol 3350 17gm powd pack PO SCH (13:48)
--- NOTE | 2021-05-08 18:10 | NUR ---
Received to room 4014B with lizbeth FREED November. RT at bedside to monitor oxygen and set up tower.
[2021-05-08] MEDS: insulin glargine (Lantus) pen - multi-dose SQ SCH (23:01)
[2021-05-09 01:30] VITALS: BP 120/64
[2021-05-09 06:00] VITALS: BP 126/67
[2021-05-09] MEDS: docusate sodium 100mg/10ml UD cup NG SCH ×2 (08:00→20:00)
[2021-05-09] MEDS: K and/or MAG REPLACEMENT MC SCH ×2 (08:00→20:00)
[2021-05-09] MEDS: polyethylene glycol 3350 17gm powd pack PO SCH (08:00)
[2021-05-09] MEDS: lactose-reduced food (Ensure Enlive) - 237ml bottle PO SCH ×3 (08:00→18:00)
[2021-05-09] MEDS: diltiazem 30mg tablet PO SCH ×2 (08:28→21:58)
[2021-05-09] MEDS: pantoprazole 40 MG vial IV SCH (08:28)
[2021-05-09] MEDS: enoxaparin 60mg/0.6ml syringe SUBCUT SCH ×2 (08:29→22:05)
[2021-05-09] MEDS: amiodarone 200mg tablet NG SCH ×2 (08:29→21:58)
[2021-05-09] MEDS: enoxaparin 30mg/0.3ml syringe SUBCUT SCH ×2 (08:30→22:05)
[2021-05-09] MEDS: methylPREDNISolone sod succ/PF 40mg inj. IV SCH ×2 (08:30→21:59)
[2021-05-09 08:37] LABS: BASOPHILS # (AUTO) 0.2 X10'3 (0-0.2); BASOPHILS % (AUTO) 0.8 % (0-1); EOSINOPHILS % (AUTO) 0.2 % (0-6); HEMATOCRIT 43.2 % (35.0-45.0); HEMOGLOBIN 14.2 g/dl (12.0-16.0); LYMPHOCYTES # (AUTO) 0.4 X10'3 (1.1-4.8); LYMPHOCYTES % (AUTO) 1.3 % (21-51); MEAN CORPUSCULAR HEMOGLOBIN 30.2 PG (27.0-31.0); MEAN CORPUSCULAR HGB CONC 32.8 g/dL (33.0-36.5); MEAN CORPUSCULAR VOLUME 92.1 FL (78-98); MEAN PLATELET VOLUME 9.2 FL (7.4-10.4); MONOCYTES # (AUTO) 0.3 X10'3 (0-0.9); MONOCYTES % (AUTO) 1.2 % (2-12); NEUTROPHILS # (AUTO) 25.8 X10'3 (1.8-7.7); NEUTROPHILS % (AUTO) 96.5 % (42-75); PLATELET COUNT 244 X10'3 (140-440); RED BLOOD COUNT 4.69 X10'6 (4.20-5.60); RED CELL DISTRIBUTION WIDTH 13.7 % (11.5-14.5)
[2021-05-09 09:03] LABS: D-DIMER 1.88 MG/L FEU (0-0.50)
[2021-05-09 09:09] LABS: ALANINE AMINOTRANSFERASE 88 U/L (12-78); ALBUMIN 2.1 G/DL (3.4-5.0); ALBUMIN/GLOBULIN RATIO 0.6 (1.1-1.5); ALKALINE PHOSPHATASE 310 IU/L (46-116); ANION GAP 6 (8-16); ASPARTATE AMINO TRANSFERASE 38 U/L (10-37); BILIRUBIN,TOTAL 0.4 MG/DL (0.1-1.0); BLOOD UREA NITROGEN 43 MG/DL (7-18); BUN/CREATININE RATIO 51.2 (6.6-38.0); C-REACTIVE PROTEIN 0.75 MG/DL (0.0-0.5); CALCIUM 8.4 MG/DL (8.5-10.1); CHLORIDE 109 MMOL/L (99-107); CREATININE 0.84 MG/DL (0.40-0.90); GLUCOSE 130 MG/DL (70-104); MAGNESIUM 2.8 MG/DL (1.5-2.4); PHOSPHORUS 3.5 MG/DL (2.3-4.5); POTASSIUM 5.1 MMOL/L (3.5-5.1); SODIUM 144 MMOL/L (135-145); TOTAL CARBON DIOXIDE 29.3 MMOL/L (24-32); TOTAL PROTEIN 5.5 G/DL (6.4-8.2); eGFR 66 ML/MIN
[2021-05-09 09:20] LABS: WHITE BLOOD COUNT 26.7 X10'3 (4.5-11.0)
[2021-05-09 09:25] LABS: PLATELET ESTIMATE NORMAL; TOTAL CELLS COUNTED 100
[2021-05-09 10:00] VITALS: BP 120/54
[2021-05-09] MEDS: acetaminophen 325mg tablet NG PRN ×2 (13:05→22:07)
--- NOTE | 2021-05-09 13:44 | NUR ---
LOURDES TC 05/09: Pt reports Ensure Enlive too thick even though thin liquid since her mouth is sore. SNEHA d/w RN recommends ensure high protein TIDWM as alternative if MD agreeable since less aftertaste. Addendum: 05/09/21 at [address] Amended: Links added.
[2021-05-09 14:00] VITALS: BP 135/75
--- NOTE | 2021-05-09 16:10 | NUR ---
Patient prone, sao2 93%, position with pillows. Patient states she is comfortable.
--- NOTE | 2021-05-09 16:23 | NUR ---
Tube feeding off while patient prone.
--- NOTE | 2021-05-09 17:15 | NUR ---
Patient turned supine. sao2 88%. incont sm amt liquid stool. kofi care & partial linen change done. Tube feeding flushed and turned back on.
[2021-05-09] MEDS: lactose-reduced food (Ensure High Protein) 237ml bottle PO SCH (18:00)
[2021-05-09 18:30] VITALS: BP 131/63
[2021-05-09 22:00] VITALS: BP 109/58
[2021-05-09] MEDS: insulin glargine (Lantus) pen - multi-dose SQ SCH (22:26)
[2021-05-10 02:00] VITALS: BP 97/62
[2021-05-10 06:00] VITALS: BP 100/49
[2021-05-10 07:51] LABS: EOSINOPHILS % (AUTO) 0.1 % (0-6); HEMATOCRIT 39.4 % (35.0-45.0); MEAN CORPUSCULAR VOLUME 91.3 FL (78-98); MEAN PLATELET VOLUME 9.3 FL (7.4-10.4)
[2021-05-10 07:55] LABS: BASOPHILS % (AUTO) 0.1 % (0-1); LYMPHOCYTES # (AUTO) 0.3 X10'3 (1.1-4.8); LYMPHOCYTES % (AUTO) 1.6 % (21-51); MEAN CORPUSCULAR HEMOGLOBIN 30.2 PG (27.0-31.0); MEAN CORPUSCULAR HGB CONC 33.1 g/dL (33.0-36.5); MONOCYTES # (AUTO) 0.2 X10'3 (0-0.9); MONOCYTES % (AUTO) 1.2 % (2-12); NEUTROPHILS # (AUTO) 19.3 X10'3 (1.8-7.7); PLATELET COUNT 200 X10'3 (140-440); RED BLOOD COUNT 4.31 X10'6 (4.20-5.60); RED CELL DISTRIBUTION WIDTH 13.8 % (11.5-14.5); WHITE BLOOD COUNT 19.9 X10'3 (4.5-11.0)
[2021-05-10] MEDS: lactose-reduced food (Ensure High Protein) 237ml bottle PO SCH ×3 (08:00→18:00)
[2021-05-10] MEDS: K and/or MAG REPLACEMENT MC SCH ×2 (08:00→20:00)
[2021-05-10] MEDS: docusate sodium 100mg/10ml UD cup NG SCH ×2 (08:00→20:00)
[2021-05-10] MEDS: polyethylene glycol 3350 17gm powd pack PO SCH (08:00)
[2021-05-10] MEDS: lactose-reduced food (Ensure Enlive) - 237ml bottle PO SCH ×3 (08:00→18:00)
[2021-05-10 08:29] LABS: TOTAL CELLS COUNTED 100
[2021-05-10 08:30] LABS: PLATELET ESTIMATE NORMAL
[2021-05-10 08:38] LABS: ALANINE AMINOTRANSFERASE 85 U/L (12-78); ALBUMIN 1.9 G/DL (3.4-5.0); ALBUMIN/GLOBULIN RATIO 0.6 (1.1-1.5); ALKALINE PHOSPHATASE 239 IU/L (46-116); ANION GAP 8 (8-16); ASPARTATE AMINO TRANSFERASE 43 U/L (10-37); BILIRUBIN,TOTAL 0.3 MG/DL (0.1-1.0); BLOOD UREA NITROGEN 45 MG/DL (7-18); BUN/CREATININE RATIO 52.9 (6.6-38.0); C-REACTIVE PROTEIN 1.66 MG/DL (0.0-0.5); CALCIUM 8.4 MG/DL (8.5-10.1); CHLORIDE 112 MMOL/L (99-107); CREATININE 0.85 MG/DL (0.40-0.90); GLUCOSE 123 MG/DL (70-104); MAGNESIUM 2.8 MG/DL (1.5-2.4); SODIUM 147 MMOL/L (135-145); TOTAL CARBON DIOXIDE 26.8 MMOL/L (24-32); TOTAL PROTEIN 5.2 G/DL (6.4-8.2); eGFR 65 ML/MIN
[2021-05-10 08:39] LABS: POTASSIUM 5.1 MMOL/L (3.5-5.1)
[2021-05-10 08:54] LABS: D-DIMER 1.52 MG/L FEU (0-0.50)
[2021-05-10 10:00] VITALS: BP 112/65
--- NOTE | 2021-05-10 12:50 | NUR ---
F/u 05/10: LOURDES TC to report that MD would like TF to run nocturnally to potentially stimulate pt's appetite as pt has been mostly refusing meals. RN also reports pt coughing up ONS, RD recommended BSS eval. See updated TF recs below to run for 12hr overnight. Will continue to monitor for TF tolerance and adjust needs as medically indicated. Rec: 1. Continue regular diet; encourage PO intake 2. Ensure Enlive TIDWM; Severe corn allergy but pt reports drinks Ensures at home without allergic reaction; only corn syrup in ONS not corn protein 3. Nocturnal supplemental TF via NG tube using Vital AF at 80 mL/hr for 12hr goal to provide 960mL total volume/day, 1152 kcal, 72g protein, and 779mL water; monitor need for adjustments 4. IF out of Vital AF; Substitute using Glucerna 1.2 at 40ml/hr and NOT Vital High Protein as contains corn oil w/ severe allergy. Would provide 960ml volume/day, 1152 kcals, 779ml water, and 58g protein. 5. No additional water flushes at this time as pt will continue with PO diet; monitor need for adjustments 6. Prealbumin q Saturday/; daily wts 7. Routine bowel care; possible 15 days constipation Addendum: 05/10/21 at [address] Amended: Links added.
[2021-05-10] MEDS: pantoprazole 40mg Tablet.DR PO SCH (12:59)
[2021-05-10] MEDS: amiodarone 200mg tablet NG SCH ×2 (13:00→20:39)
[2021-05-10] MEDS: acetaminophen 325mg tablet NG PRN ×2 (13:00→20:40)
[2021-05-10] MEDS: diltiazem 30mg tablet PO SCH ×2 (13:00→20:39)
[2021-05-10 14:00] VITALS: BP 91/56
--- NOTE | 2021-05-10 17:16 | NUR ---
PAGER ID: [phone] MESSAGE: [phone] Kenzie Family is really upset that no DR has communicated with them this entire hospitalization. Please call Cami - granddaughter [phone]
[2021-05-10 18:00] VITALS: BP 105/64
--- NOTE | 2021-05-10 18:51 | NUR ---
Report to Mynor FREED
[2021-05-10] MEDS: enoxaparin 80mg/0.8ml syringe SUBCUT SCH (20:39)
[2021-05-10] MEDS: methylPREDNISolone sod succ/PF 40mg inj. IV SCH (20:40)
[2021-05-10 22:00] VITALS: BP 102/60
[2021-05-10] MEDS: insulin glargine (Lantus) pen - multi-dose SQ SCH (23:06)
[2021-05-11 02:00] VITALS: BP 112/64
[2021-05-11 06:00] VITALS: BP 120/66
--- NOTE | 2021-05-11 06:00 | NUR ---
reported to days. noted pt would benefit from swallow eval prior to CL diet. need to turn off tube feeding at 0700, and need for increased oxygen tonight. currently on 15L NRB and 40L HF NC with 100% oxygen. if fci tube feeding needed pt may benefit from corpak.
--- NOTE | 2021-05-11 06:20 | NUR ---
Patient in room ORTHO 4014. I have received report from LOURDES Lowe and had the opportunity to ask questions and assume patient care.
[2021-05-11] MEDS: enoxaparin 80mg/0.8ml syringe SUBCUT SCH ×2 (07:36→20:31)
[2021-05-11] MEDS: docusate sodium 100mg/10ml UD cup NG SCH ×2 (07:36→20:30)
[2021-05-11] MEDS: diltiazem 30mg tablet PO SCH (07:37)
[2021-05-11] MEDS: pantoprazole 40mg Tablet.DR PO SCH (07:37)
[2021-05-11] MEDS: polyethylene glycol 3350 17gm powd pack PO SCH (07:37)
[2021-05-11] MEDS: methylPREDNISolone sod succ/PF 40mg inj. IV SCH ×2 (07:37→20:30)
[2021-05-11] MEDS: amiodarone 200mg tablet NG SCH ×2 (07:38→20:30)
[2021-05-11] MEDS: lactose-reduced food (Ensure Enlive) - 237ml bottle PO SCH ×2 (08:00→12:56)
[2021-05-11] MEDS: K and/or MAG REPLACEMENT MC SCH ×2 (08:00→20:00)
[2021-05-11] MEDS: lactose-reduced food (Ensure High Protein) 237ml bottle PO SCH ×2 (08:00→13:00)
[2021-05-11 08:33] LABS: ABG BASE EXCESS 6.3 mmol/L (-2.0-2.0); ABG HCO3 30.3 mmol/L (22.0-26.0); ABG OXYGEN SATURATION 84.8 % (94-97); ABG PCO2 (T) 40.3 mmHg (32.0-45.0); ALLEN'S TEST POSITIVE; FCOHb 0.5 % (0.0-3.9); FLOW 40 L/min; FMetHb 0.3 % (0.0-1.5); FO2Hb 84.1 % (94-97); PATIENT TEMPERATURE 36.7; TOTAL HEMOGLOBIN 13.8 G/dl (12.0-16.0)
[2021-05-11 08:33] LABS: BASOPHILS % (AUTO) 0.2 % (0-1); EOSINOPHILS % (AUTO) 0.1 % (0-6); LYMPHOCYTES # (AUTO) 0.3 X10'3 (1.1-4.8); LYMPHOCYTES % (AUTO) 1.6 % (21-51); MEAN CORPUSCULAR HGB CONC 32.6 g/dL (33.0-36.5); MEAN CORPUSCULAR VOLUME 91.9 FL (78-98); MEAN PLATELET VOLUME 9.2 FL (7.4-10.4); MONOCYTES # (AUTO) 0.3 X10'3 (0-0.9); MONOCYTES % (AUTO) 1.6 % (2-12); NEUTROPHILS # (AUTO) 19.9 X10'3 (1.8-7.7); NEUTROPHILS % (AUTO) 96.5 % (42-75); PLATELET COUNT 225 X10'3 (140-440); RED BLOOD COUNT 4.35 X10'6 (4.20-5.60); RED CELL DISTRIBUTION WIDTH 13.9 % (11.5-14.5); WHITE BLOOD COUNT 20.6 X10'3 (4.5-11.0)
[2021-05-11 08:47] LABS: ALANINE AMINOTRANSFERASE 83 U/L (12-78); ALBUMIN 1.9 G/DL (3.4-5.0); ALBUMIN/GLOBULIN RATIO 0.5 (1.1-1.5); ALKALINE PHOSPHATASE 242 IU/L (46-116); ANION GAP 8 (8-16); ASPARTATE AMINO TRANSFERASE 40 U/L (10-37); BILIRUBIN,TOTAL 0.3 MG/DL (0.1-1.0); BLOOD UREA NITROGEN 46 MG/DL (7-18); BUN/CREATININE RATIO 48.4 (6.6-38.0); C-REACTIVE PROTEIN 9.02 MG/DL (0.0-0.5); CALCIUM 8.5 MG/DL (8.5-10.1); CHLORIDE 113 MMOL/L (99-107); CREATININE 0.95 MG/DL (0.40-0.90); GLUCOSE 144 MG/DL (70-104); POTASSIUM 4.9 MMOL/L (3.5-5.1); PREALBUMIN 25.3 MG/DL (19-36); SODIUM 149 MMOL/L (135-145); TOTAL CARBON DIOXIDE 28.2 MMOL/L (24-32); TOTAL PROTEIN 5.4 G/DL (6.4-8.2); eGFR 57 ML/MIN
--- NOTE | 2021-05-11 09:41 | NUR ---
Page Sent PAGER ID: [phone] MESSAGE: Regarding 4014B Chantal Espino-CXJaneth results in for you to view.
--- NOTE | 2021-05-11 09:57 | NUR ---
Page Sent PAGER ID: [phone] MESSAGE: [id number] Regarding 4010B- Can we get a UA? Pt urine cloudy w/strong odor.
[2021-05-11 10:00] VITALS: BP 136/78
--- NOTE | 2021-05-11 10:34 | NUR ---
Pt placed on Bipap this AM, pt stated she wanted to try if it would help. Family aware and willing to attempt but do not want the Pt to be uncomfortable or struggling. At this time pt is not tolerating Bipap, 02 saturation 83-84%, RR 40, skin dusky. Notified MD that pt was not tolerating the bipap and struggling. stated " there's nothing else we can do". This nurse mentioned comfort care and updating the family regarding pt not tolerating bipap. stated "she doesn't look like she's struggling to me, bye". Charge Nurse aware.
[2021-05-11] MEDS: morphine 2 MG/ML inj. syringe IV PRN (10:44)
[2021-05-11] MEDS: bisacodyl 10mg suppository rectal RC SCH (11:36)
[2021-05-11] MEDS ORDERED: dextrose ORAL solution 15 GM/59 ML bottle NG PRN ×2 (13:48→13:49)
[2021-05-11] MEDS ORDERED: diphenhydrAMINE 25 MG/10 ML UD oral solution NG PRN (13:50)
[2021-05-11] MEDS ORDERED: lactose-reduced food (Ensure High Protein) 237ml bottle NG SCH (13:51)
[2021-05-11 14:00] VITALS: BP 127/82
--- NOTE | 2021-05-11 14:32 | NUR ---
F/u 05/11: Pt tolerating nocturnal EN at goal 80ml/hr however made NPO per SAMPLE WASHER recs this AM given respiratory status. RD d/w RN regarding return to continuous EN over 24 hours if MD agreeable; recs below for both cyclic/continuous EN. LBM 05/10 receiving routine colace w/ prior 15 days constipation likely resolved. Noted serum Na 149 this AM w/ pt advanced to clear liquids 05/10; poor PO and no water flushes likely serum Na. New water flush recommendations below; MD notified. Will continue to monitor for TF tolerance and adjustment needs as medically indicated. Rec: 1. advance to regular diet per SAMPLE WASHER recs 2. Once PO diet past full liquids resume Ensure Enlive TIDWM; Severe corn allergy but pt reports drinks Ensures at home without allergic reaction; only corn syrup in ONS not corn protein 3. Nocturnal supplemental TF per MD via NG tube using Vital AF at 80 mL/hr for 12hr goal to provide 960mL total volume/day, 1152 kcal, 72g protein, and 779mL water; monitor need for adjustments 4. IF return to continuous TF w/ NPO status: Vital AF at 50mL/hr goal to provide 1200mL total volume/day, 1440kcal, 90g protein, and 972mL water 5. IF out of Vital AF; Substitute using Glucerna 1.2 NOT Vital High Protein as contains corn oil w/ severe allergy 6. additional water flush 200ml Q4H given NPO status per SAMPLE WASHER; monitor serum Na and adjustment needs 6. Prealbumin q Saturday/; daily wts 7. Routine bowel care; prior 15 days constipation Addendum: 05/11/21 at [address] Amended: Links added.
--- NOTE | 2021-05-11 14:34 | NUR ---
Page Sent PAGER ID: [phone] MESSAGE: [id number] Regarding [id number] Pt NPO, change NG feeding to 24 hour. Currently 12 on 12 off.
[2021-05-11 18:00] VITALS: BP 143/76
--- NOTE | 2021-05-11 18:42 | NUR ---
Problems reprioritized. Patient report given,LOURDES Lowe questions answered & plan of care reviewed with .
--- NOTE | 2021-05-11 19:55 | NUR ---
report given to LOURDES Pedraza
[2021-05-11] MEDS: acetaminophen 325mg tablet NG PRN (20:30)
--- NOTE | 2021-05-11 20:30 | NUR ---
repositioned patient, gave PM meds through ng tube. started tube feeding and free water. added intervention to keep track of free water given. pt tolerating the bipap well with sats at 93%.
[2021-05-11] MEDS: diltiazem 30mg tablet NG SCH (20:31)
[2021-05-11] MEDS: lactose-reduced food (Ensure Enlive) - 237ml bottle NG SCH (20:32)
[2021-05-11] MEDS: insulin glargine (Lantus) pen - multi-dose SQ SCH (20:35)
[2021-05-11 22:00] VITALS: BP 114/60
[2021-05-12 02:00] VITALS: BP 103/61
[2021-05-12] MEDS: acetaminophen 325mg tablet NG PRN (03:20)
[2021-05-12 06:30] VITALS: BP 115/65
[2021-05-12] MEDS: K and/or MAG REPLACEMENT MC SCH ×2 (08:00→20:00)
[2021-05-12] MEDS: lactose-reduced food (Ensure Enlive) - 237ml bottle NG SCH ×3 (08:00→18:00)
[2021-05-12 08:26] LABS: BASOPHILS % (AUTO) 0.1 % (0-1); EOSINOPHILS % (AUTO) 0.1 % (0-6); HEMATOCRIT 38.6 % (35.0-45.0); HEMOGLOBIN 12.8 g/dl (12.0-16.0); LYMPHOCYTES # (AUTO) 0.4 X10'3 (1.1-4.8); LYMPHOCYTES % (AUTO) 1.7 % (21-51); MEAN CORPUSCULAR HEMOGLOBIN 30.4 PG (27.0-31.0); MEAN CORPUSCULAR HGB CONC 33.3 g/dL (33.0-36.5); MEAN CORPUSCULAR VOLUME 91.3 FL (78-98); MEAN PLATELET VOLUME 9.1 FL (7.4-10.4); MONOCYTES # (AUTO) 0.5 X10'3 (0-0.9); MONOCYTES % (AUTO) 2.1 % (2-12); NEUTROPHILS # (AUTO) 22.7 X10'3 (1.8-7.7); PLATELET COUNT 223 X10'3 (140-440); RED BLOOD COUNT 4.23 X10'6 (4.20-5.60); RED CELL DISTRIBUTION WIDTH 13.5 % (11.5-14.5); WHITE BLOOD COUNT 23.6 X10'3 (4.5-11.0)
[2021-05-12 08:50] LABS: TOTAL CELLS COUNTED 100
[2021-05-12 08:51] LABS: PLATELET ESTIMATE NORMAL
[2021-05-12 08:59] LABS: ALANINE AMINOTRANSFERASE 72 U/L (12-78); ALBUMIN 2.1 G/DL (3.4-5.0); ALBUMIN/GLOBULIN RATIO 0.6 (1.1-1.5); ALKALINE PHOSPHATASE 221 IU/L (46-116); ANION GAP 4 (8-16); ASPARTATE AMINO TRANSFERASE 39 U/L (10-37); BILIRUBIN,TOTAL 0.4 MG/DL (0.1-1.0); BLOOD UREA NITROGEN 45 MG/DL (7-18); BUN/CREATININE RATIO 54.2 (6.6-38.0); C-REACTIVE PROTEIN 8.64 MG/DL (0.0-0.5); CALCIUM 8.5 MG/DL (8.5-10.1); CHLORIDE 113 MMOL/L (99-107); CREATININE 0.83 MG/DL (0.40-0.90); GLUCOSE 126 MG/DL (70-104); POTASSIUM 4.5 MMOL/L (3.5-5.1); SODIUM 149 MMOL/L (135-145); TOTAL CARBON DIOXIDE 31.6 MMOL/L (24-32); TOTAL PROTEIN 5.7 G/DL (6.4-8.2); eGFR 67 ML/MIN
[2021-05-12] MEDS: docusate sodium 100mg/10ml UD cup NG SCH ×2 (09:03→20:00)
[2021-05-12] MEDS: methylPREDNISolone sod succ/PF 40mg inj. IV SCH ×2 (09:03→23:28)
[2021-05-12] MEDS: amiodarone 200mg tablet NG SCH ×2 (09:04→20:00)
[2021-05-12] MEDS: diltiazem 30mg tablet NG SCH ×2 (09:04→20:00)
[2021-05-12] MEDS: lansoprazole 15mg solutab NG SCH (09:04)
[2021-05-12] MEDS: polyethylene glycol 3350 17gm powd pack NG SCH (09:05)
[2021-05-12] MEDS: enoxaparin 80mg/0.8ml syringe SUBCUT SCH ×2 (09:05→20:00)
[2021-05-12 09:11] LABS: D-DIMER 1.06 MG/L FEU (0-0.50)
[2021-05-12 10:00] VITALS: BP 110/73
[2021-05-12] MEDS: morphine 2 MG/ML inj. syringe IV PRN ×2 (10:02→16:11)
--- NOTE | 2021-05-12 13:56 | NUR ---
F/u 05/12: SNEHA [employer] regarding TF rate adjustment since remains NPO. MD is agreeable to return to continuous TF w/ rate adjustment per RD recs. Updated EN recs below given pt NPO status. RD d/w RN okay to initiate at goal rate since pt tolerating nocturnal feeds at goal. LBM 05/10 receiving routine bowel care. Will continue to monitor. Rec: 1. Continuous TF per MD using Vital AF at 55mL/hr goal; to provide 1320mL volume/day, 1584 kcal, 99g protein, and 1069mL water 2. IF out of Vital AF; Substitute using Glucerna 1.2 at 55ml/hr; NOT Vital High Protein as contains corn oil w/ severe allergy 3. additional water flush 200ml Q4H given NPO status per J2EE ENGINEER; monitor serum Na and adjustment needs 4. Prealbumin q Saturday/; daily wts 5. Routine bowel care; prior 15 days constipation 6. advance to regular diet per J2EE ENGINEER/MD recs 7. Once PO diet at least full liquids resume Ensure Enlive TIDWM; Severe corn allergy but pt reports drinks Ensures at home without allergic reaction; only corn syrup in ONS not corn protein Addendum: 05/12/21 at [address] Amended: Links added.
[2021-05-12 14:00] VITALS: BP 123/62
[2021-05-12 18:00] VITALS: BP 123/61
--- NOTE | 2021-05-12 18:31 | NUR ---
Problems reprioritized. Patient report given, questions answered & plan of care reviewed with SEA FREED.
[2021-05-12 22:00] VITALS: BP 128/77
[2021-05-12] MEDS: insulin regular, human U-100 3ml vial - multi-dose SQ SCH (23:09)
[2021-05-12] MEDS: insulin glargine (Lantus) pen - multi-dose SQ SCH (23:27)
[2021-05-13 05:25] VITALS: BP 118/70
[2021-05-13 06:28] VITALS: BP 139/79
[2021-05-13] MEDS: lactose-reduced food (Ensure Enlive) - 237ml bottle NG SCH ×3 (07:16→18:00)
[2021-05-13] MEDS: docusate sodium 100mg/10ml UD cup NG SCH ×2 (07:20→19:44)
[2021-05-13] MEDS: diltiazem 30mg tablet NG SCH ×2 (07:20→19:44)
[2021-05-13] MEDS: methylPREDNISolone sod succ/PF 40mg inj. IV SCH ×2 (07:20→19:44)
[2021-05-13] MEDS: amiodarone 200mg tablet NG SCH ×2 (07:20→19:45)
[2021-05-13] MEDS: polyethylene glycol 3350 17gm powd pack NG SCH (07:20)
[2021-05-13] MEDS: lansoprazole 15mg solutab NG SCH (07:20)
[2021-05-13] MEDS: enoxaparin 80mg/0.8ml syringe SUBCUT SCH ×2 (07:21→19:45)
[2021-05-13] MEDS: K and/or MAG REPLACEMENT MC SCH ×2 (08:00→19:32)
[2021-05-13 08:43] LABS: BASOPHILS % (AUTO) 0.2 % (0-1); EOSINOPHILS % (AUTO) 0.2 % (0-6); HEMATOCRIT 37.6 % (35.0-45.0); HEMOGLOBIN 12.5 g/dl (12.0-16.0); LYMPHOCYTES # (AUTO) 0.3 X10'3 (1.1-4.8); LYMPHOCYTES % (AUTO) 1.4 % (21-51); MEAN CORPUSCULAR HEMOGLOBIN 30.5 PG (27.0-31.0); MEAN CORPUSCULAR HGB CONC 33.3 g/dL (33.0-36.5); MEAN CORPUSCULAR VOLUME 91.6 FL (78-98); MEAN PLATELET VOLUME 9.2 FL (7.4-10.4); MONOCYTES # (AUTO) 0.3 X10'3 (0-0.9); MONOCYTES % (AUTO) 1.5 % (2-12); NEUTROPHILS # (AUTO) 19.7 X10'3 (1.8-7.7); NEUTROPHILS % (AUTO) 96.7 % (42-75); PLATELET COUNT 216 X10'3 (140-440); RED BLOOD COUNT 4.11 X10'6 (4.20-5.60); RED CELL DISTRIBUTION WIDTH 13.4 % (11.5-14.5); WHITE BLOOD COUNT 20.4 X10'3 (4.5-11.0)
[2021-05-13] MEDS: insulin regular, human U-100 3ml vial - multi-dose SQ SCH ×3 (08:59→19:56)
[2021-05-13 09:07] LABS: D-DIMER 0.82 MG/L FEU (0-0.50)
[2021-05-13 09:24] LABS: ALANINE AMINOTRANSFERASE 64 U/L (12-78); ALBUMIN/GLOBULIN RATIO 0.5 (1.1-1.5); ALKALINE PHOSPHATASE 180 IU/L (46-116); ANION GAP 6 (8-16); ASPARTATE AMINO TRANSFERASE 30 U/L (10-37); BILIRUBIN,TOTAL 0.4 MG/DL (0.1-1.0); BLOOD UREA NITROGEN 44 MG/DL (7-18); BUN/CREATININE RATIO 56.4 (6.6-38.0); C-REACTIVE PROTEIN 6.49 MG/DL (0.0-0.5); CALCIUM 8.5 MG/DL (8.5-10.1); CHLORIDE 112 MMOL/L (99-107); CREATININE 0.78 MG/DL (0.40-0.90); GLUCOSE 150 MG/DL (70-104); POTASSIUM 4.7 MMOL/L (3.5-5.1); SODIUM 149 MMOL/L (135-145); TOTAL CARBON DIOXIDE 30.8 MMOL/L (24-32); TOTAL PROTEIN 5.8 G/DL (6.4-8.2); eGFR 72 ML/MIN
[2021-05-13 10:00] VITALS: BP 117/70
[2021-05-13 10:37] LABS: PLATELET ESTIMATE NORMAL; TOTAL CELLS COUNTED 100
[2021-05-13] MEDS: morphine 2 MG/ML inj. syringe IV PRN ×2 (12:05→22:05)
[2021-05-13 14:00] VITALS: BP 112/70
[2021-05-13 18:00] VITALS: BP 137/71
--- NOTE | 2021-05-13 18:26 | NUR ---
Problems reprioritized. Patient report given, questions answered & plan of care reviewed with KALIN FREED.
[2021-05-13] MEDS: insulin glargine (Lantus) pen - multi-dose SQ SCH (19:58)
[2021-05-13 22:00] VITALS: BP 142/76
[2021-05-14 02:00] VITALS: BP 124/71
[2021-05-14] MEDS: insulin regular, human U-100 3ml vial - multi-dose SQ SCH ×3 (02:57→19:54)
--- NOTE | 2021-05-14 06:13 | NUR ---
Problems reprioritized. Patient report given, questions answered & plan of care reviewed with LOURDES Farr.
[2021-05-14 07:20] VITALS: BP 124/71
[2021-05-14] MEDS: lactose-reduced food (Ensure Enlive) - 237ml bottle NG SCH ×3 (08:00→18:00)
[2021-05-14] MEDS: diltiazem 30mg tablet NG SCH ×2 (08:00→19:43)
[2021-05-14] MEDS: K and/or MAG REPLACEMENT MC SCH ×2 (08:00→18:51)
[2021-05-14 09:30] LABS: D-DIMER 1.41 MG/L FEU (0-0.50)
[2021-05-14] MEDS: amiodarone 200mg tablet NG SCH (09:48)
[2021-05-14] MEDS: lansoprazole 15mg solutab NG SCH (09:48)
[2021-05-14] MEDS: enoxaparin 80mg/0.8ml syringe SUBCUT SCH ×2 (09:50→19:44)
[2021-05-14] MEDS: docusate sodium 100mg/10ml UD cup NG SCH ×2 (09:53→19:43)
[2021-05-14] MEDS: methylPREDNISolone sod succ/PF 40mg inj. IV SCH ×2 (09:53→19:43)
[2021-05-14] MEDS: polyethylene glycol 3350 17gm powd pack NG SCH (09:53)
[2021-05-14] MEDS: bisacodyl 10mg suppository rectal RC SCH (12:59)
--- NOTE | 2021-05-14 13:12 | NUR ---
PATIENT PRONED FOR APPROXIMATELY 45 MIN. SHE WAS BEGGING TO GO BACK TO HER BACK, BECAUSE IT WASN'T COMFORTABLE FOR HER. EXPLAINED THE BENEFITS OF PRONING FOR LONGER AMOUNTS OF TIME. SHE REFUSED AND ASKED TO BE PLACED BACK ON HER BACK.
--- NOTE | 2021-05-14 15:18 | NUR ---
Notified RT that Dr. Albright would like to trial this patient on high flow to see how she does.
[2021-05-14 15:38] VITALS: BP 118/82
--- NOTE | 2021-05-14 17:40 | NUR ---
Plan of care updated with granddaughter Cami.
[2021-05-14 18:00] VITALS: BP 117/67
--- NOTE | 2021-05-14 18:35 | NUR ---
Problems reprioritized. Patient report given, questions answered & plan of care reviewed with LOURDES Russell.
[2021-05-14] MEDS: insulin glargine (Lantus) pen - multi-dose SQ SCH (19:56)
[2021-05-14 22:00] VITALS: BP 128/69
[2021-05-15 02:00] VITALS: BP 125/73
[2021-05-15] MEDS: insulin regular, human U-100 3ml vial - multi-dose SQ SCH ×2 (02:11→17:08)
[2021-05-15] MEDS: morphine 2 MG/ML inj. syringe IV PRN (04:39)
[2021-05-15 06:00] VITALS: BP 104/65
--- NOTE | 2021-05-15 06:35 | NUR ---
at [facility] this time staff emergency button was pressed, Yvonne Hinson in room said sp02 was in 20's, I called tele box they said it was also in 20's. Per Simona FREED Bi-pap tubing fell apart. Tubing fixed and patient went back up to 88%.
[2021-05-15] MEDS ORDERED: amiodarone 200mg tablet PO SCH (08:00)
[2021-05-15] MEDS: K and/or MAG REPLACEMENT MC SCH ×2 (08:00→20:00)
[2021-05-15] MEDS: docusate sodium 100mg/10ml UD cup NG SCH ×2 (08:00→23:52)
[2021-05-15] MEDS: polyethylene glycol 3350 17gm powd pack NG SCH (08:00)
[2021-05-15] MEDS: lactose-reduced food (Ensure Enlive) - 237ml bottle NG SCH ×3 (08:00→18:00)
[2021-05-15 09:25] LABS: BASOPHILS % (AUTO) 0.1 % (0-1); EOSINOPHILS % (AUTO) 0.3 % (0-6); HEMATOCRIT 37.2 % (35.0-45.0); HEMOGLOBIN 12.3 g/dl (12.0-16.0); LYMPHOCYTES # (AUTO) 0.3 X10'3 (1.1-4.8); LYMPHOCYTES % (AUTO) 1.8 % (21-51); MEAN CORPUSCULAR HEMOGLOBIN 30.4 PG (27.0-31.0); MEAN CORPUSCULAR HGB CONC 33.1 g/dL (33.0-36.5); MEAN CORPUSCULAR VOLUME 91.7 FL (78-98); MEAN PLATELET VOLUME 9.4 FL (7.4-10.4); MONOCYTES # (AUTO) 0.4 X10'3 (0-0.9); MONOCYTES % (AUTO) 2.2 % (2-12); NEUTROPHILS # (AUTO) 16.1 X10'3 (1.8-7.7); NEUTROPHILS % (AUTO) 95.6 % (42-75); PLATELET COUNT 201 X10'3 (140-440); RED BLOOD COUNT 4.05 X10'6 (4.20-5.60); RED CELL DISTRIBUTION WIDTH 13.4 % (11.5-14.5); WHITE BLOOD COUNT 16.8 X10'3 (4.5-11.0)
[2021-05-15] MEDS: enoxaparin 80mg/0.8ml syringe SUBCUT SCH ×2 (09:28→20:00)
[2021-05-15] MEDS: diltiazem 30mg tablet NG SCH ×2 (09:29→16:34)
[2021-05-15] MEDS: lansoprazole 15mg solutab NG SCH (09:29)
[2021-05-15 11:00] VITALS: BP 110/59
[2021-05-15] MEDS: methylPREDNISolone sod succ/PF 40mg inj. IV SCH ×2 (11:41→20:00)
[2021-05-15 11:53] LABS: MYELOCYTES % (MANUAL) 0 % (0-0); TOTAL CELLS COUNTED 100
[2021-05-15 11:55] LABS: PLATELET ESTIMATE NORMAL
[2021-05-15] MEDS: amiodarone 200mg tablet NG SCH (12:46)
--- NOTE | 2021-05-15 15:03 | NUR ---
Patient back on bipap. Sats were in 70's. Repositioned patient and encouraging her to deep breathe. O2 briefly back up to 81. Patient states "God is with me." cont to enc deep breathe. RT aware.
--- NOTE | 2021-05-15 15:25 | NUR ---
reposition again, knees dropped down to allow for expansion of rib cage. sat up to 80
[2021-05-15] MEDS: insulin glargine (Lantus) pen - multi-dose SQ SCH (21:00)
[2021-05-16] MEDS: acetaminophen 325mg tablet NG PRN (03:01)
[2021-05-16] MEDS: diltiazem 30mg tablet NG SCH ×3 (03:02→15:07)
[2021-05-16 06:00] VITALS: BP 129/82
[2021-05-16] MEDS: lactose-reduced food (Ensure Enlive) - 237ml bottle NG SCH ×3 (08:00→18:12)
[2021-05-16] MEDS: docusate sodium 100mg/10ml UD cup NG SCH ×3 (08:00→14:53)
[2021-05-16] MEDS: polyethylene glycol 3350 17gm powd pack NG SCH ×2 (08:00→14:52)
[2021-05-16] MEDS: K and/or MAG REPLACEMENT MC SCH ×2 (08:00→19:31)
--- NOTE | 2021-05-16 08:00 | NUR ---
NG RE-TAPED R/T PT. DISCOMFORT. PT CLEANED AND REPOSITIONED. PT. HAVING CONSTANT LOOSE BM. ON BIPAP SATING AT 89%.
[2021-05-16] MEDS: enoxaparin 80mg/0.8ml syringe SUBCUT SCH ×2 (08:13→19:39)
[2021-05-16] MEDS: lansoprazole 15mg solutab NG SCH (08:14)
[2021-05-16] MEDS: amiodarone 200mg tablet NG SCH (08:14)
[2021-05-16] MEDS: methylPREDNISolone sod succ/PF 40mg inj. IV SCH ×2 (08:16→19:39)
[2021-05-16] MEDS: morphine 2 MG/ML inj. syringe IV PRN ×3 (08:17→17:07)
--- NOTE | 2021-05-16 09:30 | NUR ---
PT. LINENS CHANGED AND PT REPOSITIONED.
[2021-05-16 10:00] VITALS: BP 138/92
--- NOTE | 2021-05-16 11:54 | NUR ---
PAGER ID: [phone] MESSAGE: Caren Espino [id number] PT. STATING SHE CAN BREATHE BETTER LAYING DOWN. IN LAYING POSITION HR DECREASES FROM 110S TO 80S-100S AND SATS INCREASED FROM 83% ON 100%BIPAP TO 89% ON 100% OK TO HOLD FEEDING FOR PERIOD OF TIME? HARVEY [id number]
[2021-05-16] MEDS: insulin regular, human U-100 3ml vial - multi-dose SQ SCH (15:10)
--- NOTE | 2021-05-16 15:16 | NUR ---
F/u 05/16: Pt tolerating TF at goal GRV WNL. LBM 05/15 though only sharon noted since 05/11 w/ colace held and pt refusing miralax per EMR; unsure of last BM accuracy. Noted last CMP 05/13 w/ serum Na 149 unable to make appropriate hydration recommendations as unable to asses lab trends. Per RN today; Glucerna 1.2 hanging instead of Vital AF. Vital AF currently in stock and dietary notified to send Vital AF only substitute Glucerna 1.2 IF out of Vital AF. Will continue to monitor. Rec: 1. Continuous TF per MD using Vital AF at 55mL/hr goal; to provide 1320mL volume/day, 1584 kcal, 99g protein, and 1069mL water 2. IF out of Vital AF; Substitute using Glucerna 1.2 at 55ml/hr; NOT Vital High Protein as contains corn oil w/ severe allergy 3. additional water flush 200ml Q4H given NPO status per ANALYTICAL TECHNICIAN recs; monitor serum Na and adjustment needs 4. Prealbumin q Saturday/; daily wts 5. Routine bowel care; prior 15 days constipation w/ possible 5 days constipation currently 6. advance to regular diet per ANALYTICAL TECHNICIAN/MD recs 7. Once PO diet at least full liquids resume Ensure Enlive TIDWM; Severe corn allergy but pt reports drinks Ensures at home without allergic reaction; only corn syrup in ONS not corn protein Addendum: 05/16/21 at [address] Amended: Links added.
[2021-05-16 16:39] VITALS: BP 103/68
[2021-05-16 18:00] VITALS: BP 115/71
--- NOTE | 2021-05-16 18:51 | NUR ---
Gave report to traveler LOURDES.
[2021-05-16 20:00] VITALS: BP 119/72
[2021-05-16] MEDS: insulin glargine (Lantus) pen - multi-dose SQ SCH (22:16)
--- NOTE | 2021-05-16 22:31 | NUR ---
Gave Pt 12 units of Lantus at night per Misc. Nursing Note stating no regular needed for feeding coverage
[2021-05-17] MEDS: diltiazem 30mg tablet NG SCH ×4 (00:08→20:40)
[2021-05-17 02:00] VITALS: BP 112/69
--- NOTE | 2021-05-17 06:31 | NUR ---
Problems reprioritized. Patient report given, questions answered & plan of care reviewed with Yue FREED.
[2021-05-17] MEDS: K and/or MAG REPLACEMENT MC SCH ×2 (08:00→20:00)
[2021-05-17] MEDS: lactose-reduced food (Ensure Enlive) - 237ml bottle NG SCH ×3 (08:00→18:00)
[2021-05-17] MEDS: lansoprazole 15mg solutab NG SCH (08:33)
[2021-05-17] MEDS: amiodarone 200mg tablet NG SCH (08:33)
[2021-05-17] MEDS: enoxaparin 80mg/0.8ml syringe SUBCUT SCH ×2 (08:36→20:41)
[2021-05-17] MEDS: polyethylene glycol 3350 17gm powd pack NG SCH (08:37)
[2021-05-17] MEDS: methylPREDNISolone sod succ/PF 40mg inj. IV SCH (08:43)
--- NOTE | 2021-05-17 10:55 | NUR ---
Giuliano Consult: Giuliano 12 w/ nose DTI from bipap otherwise skin intact per EMR. RD d/w RN regarding CMP this AM as last 05/13 w/ serum Na consistently 149 prior. Would benefit from daily CMP since on nutrition support to optimize nutrition recs. Rec: 1. Continuous TF per MD using Vital AF at 55mL/hr goal; to provide 1320mL volume/day, 1584 kcal, 99g protein, and 1069mL water 2. IF out of Vital AF; Substitute using Glucerna 1.2 at 55ml/hr; NOT Vital High Protein as contains corn oil w/ severe allergy 3. additional water flush 200ml Q4H given NPO status per INDUSTRIAL INSULATOR recs; monitor serum Na and adjustment needs. Last CMP 05/13 w/ serum Na 149 prior 4. Prealbumin q Saturday/; daily wts 5. Routine bowel care; prior 15 days constipation w/ possible 5 days constipation currently 6. advance to regular diet per INDUSTRIAL INSULATOR/MD recs 7. Once PO diet at least full liquids resume Ensure Enlive TIDWM; Severe corn allergy but pt reports drinks Ensures at home without allergic reaction; only corn syrup in ONS not corn protein Addendum: 05/17/21 at [address] Amended: Links added.
[2021-05-17] MEDS: bisacodyl 10mg suppository rectal RC SCH (11:36)
--- NOTE | 2021-05-17 13:35 | NUR ---
PAGED RESPIRATORY... PT IN NEED BIPAP TUBING FIXED, KEEPS POPPING OFF AND PT DESATING
[2021-05-17 18:00] VITALS: BP 96/75
[2021-05-17] MEDS: docusate sodium 100mg/10ml UD cup NG SCH (20:00)
[2021-05-17 22:00] VITALS: BP 121/58
[2021-05-17] MEDS: insulin glargine (Lantus) pen - multi-dose SQ SCH (23:07)
--- NOTE | 2021-05-18 01:16 | NUR ---
Talked to respiratory about fixing Pt's mask because it comes off and she desats all the way to 30%. They stated they don't know how to fix that piece.
--- NOTE | 2021-05-18 01:34 | NUR ---
Moved Pt from 14B to room 8 to be closer to nursing desk to be able to hear alarms when desating
[2021-05-18] MEDS: diltiazem 30mg tablet NG SCH ×4 (01:57→21:03)
[2021-05-18 02:00] VITALS: BP 108/59
[2021-05-18 06:00] VITALS: BP 123/65
--- NOTE | 2021-05-18 06:48 | NUR ---
Problems reprioritized. Patient report given, questions answered & plan of care reviewed with Carl harding RN.
--- NOTE | 2021-05-18 07:48 | NUR ---
Patient in room ORTHO 4008. I have received report from GREGORY FREED and had the opportunity to ask questions and assume patient care.
[2021-05-18] MEDS: K and/or MAG REPLACEMENT MC SCH ×2 (07:53→20:00)
[2021-05-18] MEDS: docusate sodium 100mg/10ml UD cup NG SCH ×2 (08:00→21:03)
[2021-05-18] MEDS: lactose-reduced food (Ensure Enlive) - 237ml bottle NG SCH ×3 (08:00→14:37)
[2021-05-18] MEDS: lansoprazole 15mg solutab NG SCH (08:00)
[2021-05-18] MEDS: amiodarone 200mg tablet NG SCH (09:18)
[2021-05-18] MEDS: methylPREDNISolone sod succ/PF 40mg inj. IV SCH (09:19)
[2021-05-18] MEDS: enoxaparin 80mg/0.8ml syringe SUBCUT SCH ×2 (09:20→21:04)
[2021-05-18] MEDS: morphine 2 MG/ML inj. syringe IV PRN ×2 (14:25→21:19)
[2021-05-18 16:32] VITALS: BP 145/93
--- NOTE | 2021-05-18 20:12 | NUR ---
Patient in room ORTHO 4008. I have received report from Vicki FREED and had the opportunity to ask questions and assume patient care.
[2021-05-18 20:35] VITALS: BP 109/71
[2021-05-18] MEDS: insulin glargine (Lantus) pen - multi-dose SQ SCH (21:00)
[2021-05-18 23:00] VITALS: BP 118/70
[2021-05-19] MEDS: diltiazem 30mg tablet NG SCH ×4 (01:48→19:49)
[2021-05-19] MEDS: morphine 2 MG/ML inj. syringe IV PRN ×2 (01:48→19:49)
--- NOTE | 2021-05-19 02:49 | NUR ---
Entered patients room at approx. 0130 due to bipap alarming. Charge nurse and an Aide were already in the room assisting the patient. Patient was dusky and breathing was shallow and irregular. Bipap was alarming for an airleak in the 160's. After multiple attempts to fix the leak including repositioning the patient, and reapplying the mask, O2 sats were in the mid 20's and respiratory was paged. Bipap was replaced with HFNC at 15L and a non-rebreather at 15L. Patient's sats ramses to the 50's but plateaued. Patient's heart rate continued to increase while O2 did not improve, So a rapid response was called. RT came into the patient's room, assessed the patient and the bipap and found the issue. Bipap was successfully reapplied and the patient's oxygen saturation ramses back to mid 90's. No new orders were placed during event.
[2021-05-19 06:00] VITALS: BP 119/67
--- NOTE | 2021-05-19 06:43 | NUR ---
patient report given to Day RN
[2021-05-19] MEDS: K and/or MAG REPLACEMENT MC SCH ×2 (08:00→20:00)
[2021-05-19] MEDS: lactose-reduced food (Ensure Enlive) - 237ml bottle NG SCH (08:00)
[2021-05-19] MEDS: amiodarone 200mg tablet NG SCH (08:23)
[2021-05-19] MEDS: lansoprazole 15mg solutab NG SCH (08:23)
[2021-05-19] MEDS: polyethylene glycol 3350 17gm powd pack NG SCH (08:23)
[2021-05-19] MEDS: docusate sodium 100mg/10ml UD cup NG SCH (08:24)
[2021-05-19] MEDS: methylPREDNISolone sod succ/PF 40mg inj. IV SCH (08:24)
[2021-05-19] MEDS: enoxaparin 80mg/0.8ml syringe SUBCUT SCH ×2 (08:24→19:48)
[2021-05-19 10:00] VITALS: BP 105/46
--- NOTE | 2021-05-19 11:39 | NUR ---
Assessed elder catheter. Noted catheter tubing and bag to be stained and coated with what appears to be old sediment. Urine cloudy and foul smelling. New elder catheter 16F inserted to prevent infection. Extra care taken to clean kofi area and meatus. Addendum: 05/19/21 at 1141 by Alejandrina Silverman RN Amended: Links added.
--- NOTE | 2021-05-19 12:36 | NUR ---
PAGER ID: [phone] MESSAGE: Alejandrina Paola5 regarding Caren Turnernings rm [id number]. No labs since 05/15. Do you want to order labs for today?
--- NOTE | 2021-05-19 13:18 | NUR ---
Assessed elder catheter. Tubing and bag stained with what appears to be old sediment. Urine clouding with sediment and foul smelling. Inserted new 16F elder catheter to prevent infection. Addendum: 05/19/21 at 1327 by Alejandrina Silverman RN Amended: Links added.
[2021-05-19 15:32] LABS: BASOPHILS % (AUTO) 0.3 % (0-1); EOSINOPHILS # (AUTO) 0.1 X10'3 (0-0.9); EOSINOPHILS % (AUTO) 0.9 % (0-6); HEMATOCRIT 35.6 % (35.0-45.0); HEMOGLOBIN 11.5 g/dl (12.0-16.0); LYMPHOCYTES # (AUTO) 0.5 X10'3 (1.1-4.8); LYMPHOCYTES % (AUTO) 4.3 % (21-51); MEAN CORPUSCULAR HGB CONC 32.2 g/dL (33.0-36.5); MEAN CORPUSCULAR VOLUME 93.1 FL (78-98); MEAN PLATELET VOLUME 9.4 FL (7.4-10.4); MONOCYTES # (AUTO) 0.2 X10'3 (0-0.9); NEUTROPHILS # (AUTO) 10.2 X10'3 (1.8-7.7); NEUTROPHILS % (AUTO) 92.5 % (42-75); PLATELET COUNT 227 X10'3 (140-440); RED BLOOD COUNT 3.83 X10'6 (4.20-5.60); RED CELL DISTRIBUTION WIDTH 14.5 % (11.5-14.5)
[2021-05-19 15:47] LABS: D-DIMER 0.83 MG/L FEU (0-0.50)
[2021-05-19 15:52] LABS: ALANINE AMINOTRANSFERASE 208 U/L (12-78); ALBUMIN/GLOBULIN RATIO 0.6 (1.1-1.5); ALKALINE PHOSPHATASE 161 IU/L (46-116); ASPARTATE AMINO TRANSFERASE 63 U/L (10-37); BILIRUBIN,TOTAL 0.3 MG/DL (0.1-1.0); BLOOD UREA NITROGEN 37 MG/DL (7-18); BUN/CREATININE RATIO 48.1 (6.6-38.0); CALCIUM 8.2 MG/DL (8.5-10.1); CREATININE 0.77 MG/DL (0.40-0.90); GLUCOSE 183 MG/DL (70-104); LACTATE DEHYDROGENASE 682 U/L (81-234); TOTAL CARBON DIOXIDE 36.1 MMOL/L (24-32); TOTAL PROTEIN 5.6 G/DL (6.4-8.2); eGFR 73 ML/MIN
[2021-05-19 15:58] LABS: ANION GAP 4 (8-16); CHLORIDE 112 MMOL/L (99-107); POTASSIUM 4.9 MMOL/L (3.5-5.1); SODIUM 152 MMOL/L (135-145)
[2021-05-19 16:04] VITALS: BP 112/72
--- NOTE | 2021-05-19 16:09 | NUR ---
PAGER ID: [phone] MESSAGE: Alejandrina [id number] re: Caren Espino Rm [id number]. Pt has large amount of hard stool in rectum, may be impacted. Some blood noted in stool.
--- NOTE | 2021-05-19 17:18 | NUR ---
Reassessment: Pt tolerating TF at goal GRV WNL. Noted first CMP in 6 days this afternoon w/ serum Na 152 while receiving 200ml Q4H free water and not on any IV fluids per EMR. RD recommends increasing free water flushes 250ml Q4H; reviewed w/ RN and MD notified. LBM 05/16. Will continue to monitor for TF tolerance and adjustment needs as medically indicated. Rec: 1. Continuous TF per MD using Vital AF at 55mL/hr goal; to provide 1320mL volume/day, 1584 kcal, 99g protein, and 1069mL water 2. IF out of Vital AF; Substitute using Glucerna 1.2 at 55ml/hr; NOT Vital High Protein as contains corn oil w/ severe allergy 3. additional water flush 250ml Q4H given NPO status per ACCESSORIES REPAIRER recs; monitor serum Na and adjustment needs 4. daily CMPs since receiving nutrition support in order to adequately asses hydration and TF adjustment needs 5. Prealbumin q Saturday/; daily wts 6. Routine bowel care Addendum: 05/19/21 at [address] Amended: Links added.
[2021-05-19 17:29] LABS: UA COLLECTION TYPE FOLEY CATH
[2021-05-19 17:30] LABS: CLARITY,URINE SLIGHTLY CLOUDY (Clear); COLOR,URINE YELLOW (Yellow); GLUCOSE, URINE NEGATIVE (Neg); KETONES,URINE NEGATIVE (Neg); LEUKOCYTE ESTERASE ,URINE MODERATE (Neg); NITRITES, URINE POSITIVE (Neg); OCCULT BLOOD,URINE MODERATE (Neg); PH,URINE 6.5 (4.8-8.0); PROTEIN,URINE 30 mg/dl (Neg); UROBILINOGEN,URINE 0.2 E.U/dL (0.2-1.0)
[2021-05-19 17:32] LABS: RBC,URINE 20-50 /HPF (0-2); WBC,URINE 20-30 /HPF (0-4)
[2021-05-19 17:33] LABS: BACTERIA,URINE 4+ /HPF (Neg); MUCUS STRANDS NONE SEEN /LPF (Neg); SQUAMOUS EPITHELIAL CELL,UR NONE SEEN /LPF (FEW)
[2021-05-19 18:00] VITALS: BP 90/63
[2021-05-19] MEDS: insulin glargine (Lantus) pen - multi-dose SQ SCH (20:11)
[2021-05-19 22:00] VITALS: BP 114/64
[2021-05-20] MEDS: diltiazem 30mg tablet NG SCH ×4 (01:59→20:15)
[2021-05-20 02:00] VITALS: BP 105/66
[2021-05-20 05:30] VITALS: BP 111/56
--- NOTE | 2021-05-20 07:00 | NUR ---
Patient in room ORTHO 4008. I have received report from LOURDES Martin and had the opportunity to ask questions and assume patient care.
--- NOTE | 2021-05-20 08:00 | NUR ---
Unable to weigh pt due to bed does not have a scale. Will attempt to transfer pt to a bed that has a scale.
[2021-05-20 08:36] LABS: BASOPHILS % (AUTO) 0.2 % (0-1); EOSINOPHILS # (AUTO) 0.4 X10'3 (0-0.9); EOSINOPHILS % (AUTO) 3.8 % (0-6); HEMATOCRIT 32.5 % (35.0-45.0); LYMPHOCYTES # (AUTO) 0.7 X10'3 (1.1-4.8); LYMPHOCYTES % (AUTO) 7.6 % (21-51); MEAN CORPUSCULAR HGB CONC 33.8 g/dL (33.0-36.5); MEAN CORPUSCULAR VOLUME 91.7 FL (78-98); MEAN PLATELET VOLUME 8.9 FL (7.4-10.4); MONOCYTES # (AUTO) 0.2 X10'3 (0-0.9); MONOCYTES % (AUTO) 2.2 % (2-12); NEUTROPHILS # (AUTO) 8.1 X10'3 (1.8-7.7); NEUTROPHILS % (AUTO) 86.2 % (42-75); PLATELET COUNT 199 X10'3 (140-440); RED BLOOD COUNT 3.54 X10'6 (4.20-5.60); RED CELL DISTRIBUTION WIDTH 14.2 % (11.5-14.5); WHITE BLOOD COUNT 9.4 X10'3 (4.5-11.0)
[2021-05-20 09:00] LABS: ALANINE AMINOTRANSFERASE 194 U/L (12-78); ALBUMIN/GLOBULIN RATIO 0.6 (1.1-1.5); ALKALINE PHOSPHATASE 149 IU/L (46-116); ANION GAP 4 (8-16); ASPARTATE AMINO TRANSFERASE 53 U/L (10-37); BILIRUBIN,TOTAL 0.4 MG/DL (0.1-1.0); BLOOD UREA NITROGEN 35 MG/DL (7-18); BUN/CREATININE RATIO 56.5 (6.6-38.0); C-REACTIVE PROTEIN 1.61 MG/DL (0.0-0.5); CALCIUM 8.4 MG/DL (8.5-10.1); CHLORIDE 113 MMOL/L (99-107); CREATININE 0.62 MG/DL (0.40-0.90); GLUCOSE 135 MG/DL (70-104); LACTATE DEHYDROGENASE 618 U/L (81-234); POTASSIUM 4.3 MMOL/L (3.5-5.1); SODIUM 154 MMOL/L (135-145); TOTAL CARBON DIOXIDE 37.2 MMOL/L (24-32); TOTAL PROTEIN 5.4 G/DL (6.4-8.2); eGFR > 90 ML/MIN
[2021-05-20] MEDS: lansoprazole 15mg solutab NG SCH (09:07)
[2021-05-20] MEDS: amiodarone 200mg tablet NG SCH (09:07)
[2021-05-20] MEDS: bisacodyl 10mg suppository rectal RC SCH (09:07)
[2021-05-20] MEDS: methylPREDNISolone sod succ/PF 40mg inj. IV SCH (09:08)
[2021-05-20] MEDS: enoxaparin 80mg/0.8ml syringe SUBCUT SCH ×2 (09:08→20:15)
[2021-05-20] MEDS: polyethylene glycol 3350 17gm powd pack NG SCH (09:08)
[2021-05-20] MEDS: K and/or MAG REPLACEMENT MC SCH ×2 (09:09→20:00)
[2021-05-20 09:20] LABS: D-DIMER 0.92 MG/L FEU (0-0.50)
[2021-05-20 10:00] VITALS: BP 110/64
[2021-05-20 14:00] VITALS: BP 113/72
[2021-05-20] MEDS: CefTRIAXone 2gm/D5W 50ml BAG 50 ML IV SCH (15:44)
[2021-05-20 18:00] VITALS: BP 85/61
--- NOTE | 2021-05-20 18:20 | NUR ---
Problems reprioritized. Patient report given, questions answered & plan of care reviewed with LOURDES Martin.
[2021-05-20 22:00] VITALS: BP 111/62
[2021-05-20] MEDS: insulin glargine (Lantus) pen - multi-dose SQ SCH (23:59)
[2021-05-21 02:00] VITALS: BP 109/65
[2021-05-21] MEDS: diltiazem 30mg tablet NG SCH ×4 (02:52→21:47)
[2021-05-21 06:00] VITALS: BP 104/58
[2021-05-21] MEDS: amiodarone 200mg tablet NG SCH (08:00)
[2021-05-21] MEDS: polyethylene glycol 3350 17gm powd pack NG SCH (08:00)
[2021-05-21] MEDS: K and/or MAG REPLACEMENT MC SCH ×2 (08:00→20:00)
[2021-05-21] MEDS: lansoprazole 15mg solutab NG SCH (08:00)
[2021-05-21 08:12] LABS: BASOPHILS % (AUTO) 0.1 % (0-1); EOSINOPHILS # (AUTO) 0.2 X10'3 (0-0.9); EOSINOPHILS % (AUTO) 2.6 % (0-6); HEMATOCRIT 32.5 % (35.0-45.0); HEMOGLOBIN 10.8 g/dl (12.0-16.0); LYMPHOCYTES # (AUTO) 0.9 X10'3 (1.1-4.8); LYMPHOCYTES % (AUTO) 9.8 % (21-51); MEAN CORPUSCULAR HEMOGLOBIN 30.9 PG (27.0-31.0); MEAN CORPUSCULAR HGB CONC 33.1 g/dL (33.0-36.5); MEAN CORPUSCULAR VOLUME 93.4 FL (78-98); MEAN PLATELET VOLUME 9.1 FL (7.4-10.4); MONOCYTES # (AUTO) 0.3 X10'3 (0-0.9); MONOCYTES % (AUTO) 3.4 % (2-12); NEUTROPHILS # (AUTO) 7.3 X10'3 (1.8-7.7); NEUTROPHILS % (AUTO) 84.1 % (42-75); PLATELET COUNT 204 X10'3 (140-440); RED BLOOD COUNT 3.48 X10'6 (4.20-5.60); RED CELL DISTRIBUTION WIDTH 14.6 % (11.5-14.5); WHITE BLOOD COUNT 8.7 X10'3 (4.5-11.0)
[2021-05-21 08:34] LABS: ALANINE AMINOTRANSFERASE 209 U/L (12-78); ALBUMIN/GLOBULIN RATIO 0.6 (1.1-1.5); ALKALINE PHOSPHATASE 155 IU/L (46-116); ANION GAP 4 (8-16); ASPARTATE AMINO TRANSFERASE 56 U/L (10-37); BILIRUBIN,TOTAL 0.3 MG/DL (0.1-1.0); BLOOD UREA NITROGEN 34 MG/DL (7-18); C-REACTIVE PROTEIN 1.68 MG/DL (0.0-0.5); CALCIUM 8.5 MG/DL (8.5-10.1); CHLORIDE 111 MMOL/L (99-107); CREATININE 0.63 MG/DL (0.40-0.90); GLUCOSE 135 MG/DL (70-104); LACTATE DEHYDROGENASE 652 U/L (81-234); POTASSIUM 4.4 MMOL/L (3.5-5.1); SODIUM 153 MMOL/L (135-145); TOTAL CARBON DIOXIDE 37.6 MMOL/L (24-32); TOTAL PROTEIN 5.3 G/DL (6.4-8.2); eGFR > 90 ML/MIN
[2021-05-21] MEDS: CefTRIAXone 2gm/D5W 50ml BAG 50 ML IV SCH (08:58)
[2021-05-21] MEDS: methylPREDNISolone sod succ/PF 40mg inj. IV SCH (08:58)
[2021-05-21] MEDS: enoxaparin 80mg/0.8ml syringe SUBCUT SCH ×2 (09:03→21:48)
[2021-05-21 11:00] VITALS: BP 108/60
--- NOTE | 2021-05-21 14:45 | NUR ---
Patient reverse trendelenberg while turned on left side. Unable to give meds, tube feeding on hold. Sats 95%
[2021-05-21] MEDS: insulin glargine (Lantus) pen - multi-dose SQ SCH (21:56)
[2021-05-21 22:00] VITALS: BP 128/73
--- NOTE | 2021-05-21 22:04 | NUR ---
Spoke with Christy in Pharmacy about Cardizem said ok for cardizem to be crushed since pt has Core pack and there is no other way to give the medication to her.
[2021-05-22 02:00] VITALS: BP 116/70
[2021-05-22] MEDS: diltiazem 30mg tablet NG SCH ×4 (04:35→22:30)
[2021-05-22 04:50] VITALS: BP 119/67
[2021-05-22 06:00] VITALS: BP 119/67
--- NOTE | 2021-05-22 06:28 | NUR ---
Problems reprioritized. Patient report given, questions answered & plan of care reviewed with LOURDES Roth.
[2021-05-22] MEDS: K and/or MAG REPLACEMENT MC SCH ×3 (08:00→20:00)
[2021-05-22 08:28] LABS: BASOPHILS % (AUTO) 0.4 % (0-1); EOSINOPHILS # (AUTO) 0.2 X10'3 (0-0.9); EOSINOPHILS % (AUTO) 2.4 % (0-6); HEMATOCRIT 33.7 % (35.0-45.0); HEMOGLOBIN 11.2 g/dl (12.0-16.0); LYMPHOCYTES # (AUTO) 1.1 X10'3 (1.1-4.8); LYMPHOCYTES % (AUTO) 11.4 % (21-51); MEAN CORPUSCULAR HEMOGLOBIN 30.9 PG (27.0-31.0); MEAN CORPUSCULAR HGB CONC 33.2 g/dL (33.0-36.5); MEAN CORPUSCULAR VOLUME 93.1 FL (78-98); MONOCYTES # (AUTO) 0.2 X10'3 (0-0.9); MONOCYTES % (AUTO) 2.5 % (2-12); NEUTROPHILS # (AUTO) 7.9 X10'3 (1.8-7.7); NEUTROPHILS % (AUTO) 83.3 % (42-75); PLATELET COUNT 220 X10'3 (140-440); RED BLOOD COUNT 3.62 X10'6 (4.20-5.60); RED CELL DISTRIBUTION WIDTH 14.6 % (11.5-14.5); WHITE BLOOD COUNT 9.5 X10'3 (4.5-11.0)
[2021-05-22 08:36] LABS: ALANINE AMINOTRANSFERASE 209 U/L (12-78); ALBUMIN/GLOBULIN RATIO 0.6 (1.1-1.5); ALKALINE PHOSPHATASE 161 IU/L (46-116); ANION GAP 1 (8-16); ASPARTATE AMINO TRANSFERASE 48 U/L (10-37); BILIRUBIN,TOTAL 0.3 MG/DL (0.1-1.0); BLOOD UREA NITROGEN 36 MG/DL (7-18); BUN/CREATININE RATIO 55.4 (6.6-38.0); C-REACTIVE PROTEIN 0.95 MG/DL (0.0-0.5); CALCIUM 8.3 MG/DL (8.5-10.1); CHLORIDE 111 MMOL/L (99-107); CREATININE 0.65 MG/DL (0.40-0.90); GLUCOSE 107 MG/DL (70-104); LACTATE DEHYDROGENASE 602 U/L (81-234); POTASSIUM 4.5 MMOL/L (3.5-5.1); PREALBUMIN 20.4 MG/DL (19-36); SODIUM 151 MMOL/L (135-145); TOTAL CARBON DIOXIDE 38.8 MMOL/L (24-32); TOTAL PROTEIN 5.5 G/DL (6.4-8.2); eGFR 89 ML/MIN
[2021-05-22 08:45] LABS: D-DIMER 0.62 MG/L FEU (0-0.50)
[2021-05-22] MEDS: amiodarone 200mg tablet NG SCH (11:36)
[2021-05-22] MEDS: polyethylene glycol 3350 17gm powd pack NG SCH (11:36)
[2021-05-22] MEDS: lansoprazole 15mg solutab NG SCH (11:37)
[2021-05-22] MEDS: enoxaparin 80mg/0.8ml syringe SUBCUT SCH ×2 (11:37→22:31)
[2021-05-22] MEDS ORDERED: magnesium 4gm in 100ml NS 100 ML IV PRN (13:50)
[2021-05-22] MEDS ORDERED: potassium Cl 20 mEq SR tablet PO PRN ×2 (13:50)
[2021-05-22] MEDS ORDERED: magnesium Cl slow-release 64mg tablet PO PRN (13:50)
[2021-05-22] MEDS ORDERED: potassium Cl 40MEQ/1/2NS 520ml 520 ML IV PRN (13:50)
[2021-05-22] MEDS ORDERED: potassium Cl 20 mEq SR tablet NG PRN ×2 (14:39)
[2021-05-22 22:00] VITALS: BP 129/63
[2021-05-22] MEDS: lactobacillus rhamnosus 10,000 MMU CELLS/CAPSULE NG SCH (22:33)
[2021-05-23] VITALS (7 sets, daily range): BP systolic 101–149; BP diastolic 57–81
[2021-05-23] MEDS: insulin glargine (Lantus) pen - multi-dose SQ SCH ×2 (00:14→22:49)
[2021-05-23] MEDS: diltiazem 30mg tablet NG SCH ×4 (05:02→22:40)
--- NOTE | 2021-05-23 07:02 | NUR ---
Problems reprioritized. Patient report given, questions answered & plan of care reviewed with LOURDES Roth.
[2021-05-23] MEDS: K and/or MAG REPLACEMENT MC SCH ×4 (08:00→20:00)
[2021-05-23] MEDS ORDERED: methylPREDNISolone sod succ/PF 40mg inj. IV SCH (08:00)
[2021-05-23 09:02] LABS: BASOPHILS % (AUTO) 0.4 % (0-1); EOSINOPHILS # (AUTO) 0.3 X10'3 (0-0.9); EOSINOPHILS % (AUTO) 3.5 % (0-6); HEMATOCRIT 34.1 % (35.0-45.0); HEMOGLOBIN 11.4 g/dl (12.0-16.0); LYMPHOCYTES # (AUTO) 0.8 X10'3 (1.1-4.8); LYMPHOCYTES % (AUTO) 10.3 % (21-51); MEAN CORPUSCULAR HEMOGLOBIN 30.9 PG (27.0-31.0); MEAN CORPUSCULAR HGB CONC 33.4 g/dL (33.0-36.5); MEAN CORPUSCULAR VOLUME 92.6 FL (78-98); MEAN PLATELET VOLUME 9.1 FL (7.4-10.4); MONOCYTES # (AUTO) 0.2 X10'3 (0-0.9); MONOCYTES % (AUTO) 3.1 % (2-12); NEUTROPHILS # (AUTO) 6.4 X10'3 (1.8-7.7); NEUTROPHILS % (AUTO) 82.7 % (42-75); PLATELET COUNT 224 X10'3 (140-440); RED BLOOD COUNT 3.68 X10'6 (4.20-5.60); RED CELL DISTRIBUTION WIDTH 14.9 % (11.5-14.5); WHITE BLOOD COUNT 7.8 X10'3 (4.5-11.0)
[2021-05-23 09:28] LABS: ALANINE AMINOTRANSFERASE 169 U/L (12-78); ALBUMIN 2.1 G/DL (3.4-5.0); ALBUMIN/GLOBULIN RATIO 0.6 (1.1-1.5); ALKALINE PHOSPHATASE 157 IU/L (46-116); ANION GAP 1 (8-16); ASPARTATE AMINO TRANSFERASE 40 U/L (10-37); BILIRUBIN,TOTAL 0.3 MG/DL (0.1-1.0); BLOOD UREA NITROGEN 39 MG/DL (7-18); BUN/CREATININE RATIO 57.4 (6.6-38.0); C-REACTIVE PROTEIN 1.55 MG/DL (0.0-0.5); CALCIUM 8.2 MG/DL (8.5-10.1); CHLORIDE 110 MMOL/L (99-107); CREATININE 0.68 MG/DL (0.40-0.90); GLUCOSE 95 MG/DL (70-104); LACTATE DEHYDROGENASE 627 U/L (81-234); MAGNESIUM 2.7 MG/DL (1.5-2.4); PHOSPHORUS 3.4 MG/DL (2.3-4.5); POTASSIUM 4.1 MMOL/L (3.5-5.1); SODIUM 150 MMOL/L (135-145); TOTAL CARBON DIOXIDE 38.6 MMOL/L (24-32); TOTAL PROTEIN 5.4 G/DL (6.4-8.2); eGFR 84 ML/MIN
[2021-05-23 09:48] LABS: D-DIMER 1.41 MG/L FEU (0-0.50)
[2021-05-23] MEDS: amiodarone 200mg tablet NG SCH (10:18)
[2021-05-23] MEDS: lactobacillus rhamnosus 10,000 MMU CELLS/CAPSULE NG SCH ×2 (10:18→22:40)
[2021-05-23] MEDS: lansoprazole 15mg solutab NG SCH (10:19)
[2021-05-23] MEDS: enoxaparin 80mg/0.8ml syringe SUBCUT SCH ×2 (10:19→22:41)
[2021-05-23] MEDS: bisacodyl 10mg suppository rectal RC SCH (10:19)
[2021-05-23] MEDS: polyethylene glycol 3350 17gm powd pack NG SCH (10:20)
[2021-05-23 10:29] LABS: NUCLEATED RED BLOOD CELLS 1 /100WBC (0-0); TOTAL CELLS COUNTED 100
[2021-05-23 10:31] LABS: ELLIPTOCYTES FEW; PLATELET ESTIMATE NORMAL; POLYCHROMASIA FEW; STOMATOCYTES 1+; TEAR DROP CELLS FEW
--- NOTE | 2021-05-23 14:55 | NUR ---
F/u 05/23: Pt tolerating TF at goal GRV WNL. Noted pt did receive Glucerna for two day period given brief shortage of Vital AF however currently restocked and pt to return to Vital AF. LBM 05/21. Serum Na 151 down from 153 noted all pt water flush orders cancelled but documented to still receive 200ml Q4H free water which was not RD's latest recs. RD notified MD of updated free water recs 250ml Q4H and d/w RN. Will continue to monitor for TF tolerance and adjustment needs as medically indicated. Rec: 1. Continuous TF per MD using Vital AF at 55mL/hr goal; to provide 1320mL volume/day, 1584 kcal, 99g protein, and 1069mL water 2. IF out of Vital AF; Substitute using Glucerna 1.2 at 55ml/hr; NOT Vital High Protein as contains corn oil w/ severe allergy 3. additional water flush 250ml Q4H given NPO per SADDLE MAKER; monitor serum Na and adjustment needs 4. daily CMPs since receiving nutrition support in order to adequately asses hydration and TF adjustment needs 5. Prealbumin q Saturday/; daily wts 6. Routine bowel care Addendum: 05/23/21 at [address] Amended: Links added.
--- NOTE | 2021-05-23 17:30 | NUR ---
Director Willard & Rafael, at patient & daughter request looked in belongings and found ROSIE card. Patient wanted it given to granddaughter to pay patient bills. Call to daughter to let her know it was located.
--- NOTE | 2021-05-23 18:00 | NUR ---
Daughter Sara & granddaughter Cami came to hospital and I handed them the patients debit card.
--- NOTE | 2021-05-23 18:50 | NUR ---
Report to Sally FREED
--- NOTE | 2021-05-23 18:54 | NUR ---
Patient in room ORTHO 4008. I have received report from LOURDES Roth and had the opportunity to ask questions and assume patient care.
[2021-05-24 02:00] VITALS: BP 111/61
[2021-05-24 03:48] LABS: ABG OXYGEN SATURATION 79.4 % (94-97); ABG PO2 (T) 70.8 mmHg (75.0-100.0); FCOHb 0.9 % (0.0-3.9); FMetHb 0.4 % (0.0-1.5); FO2Hb 78.4 % (94-97); PATIENT TEMPERATURE 37.1; RESPIRATORY RATE 10 b/min; TIDAL VOLUME 499 mL; TOTAL HEMOGLOBIN 12.6 G/dl (12.0-16.0)
--- NOTE | 2021-05-24 04:04 | NUR ---
Spoke with Roxanne about patient's O2 sats dropping into 60's and BP of 81/54. She ordered a 250cc bolus and stat ABG's. Bipap was increased by RT and Pt is now satting in the 80's Pt BP after bolus was 88/52. Prior to bolus Blood sugar was checked and she was 184. Patient's belly was distended which was not the case earlier in the night. Her urine output is lower than it has been. Patient was unresponsive to pain. ABG's were critical. Paged Dr. palumbo again to let her know that the ABG's are in and I had a few other things to tell her. Awaiting her call back. I wanted her to know that the tube feed was changed today to Vital AF from Glucerna and that her urine output was more concentrated and was low.
--- NOTE | 2021-05-24 04:18 | NUR ---
Spoke with Dr. Oliveira and she said that there isn't really anything else we can do for the patient. "If she is passing out she is passing out".
--- NOTE | 2021-05-24 06:17 | NUR ---
PER AGRICULTURAL LENDER, PT ASYSTOLE. PAGED
[2021-05-24 06:29] LABS: ABG PCO2 (T) > 150.0 mmHg (32.0-45.0)
--- NOTE | 2021-05-24 06:32 | NUR ---
Page Sent PAGER ID: [phone] MESSAGE: SHANI [id number]-RE: CESARIO HERRERA 4008...PT AT 0617 ASYSTOLE PER PACKING MACHINE TENDER
--- NOTE | 2021-05-24 07:09 | NUR ---
Problems reprioritized. Patient report given, questions answered & plan of care reviewed with LOURDES Bhatti.
--- NOTE | 2021-05-24 07:10 | NUR ---
Patient's family, Daughter (Sara)was notified of her passing. [facility] was notified of the patient's expiration.
--- NOTE | 2021-05-24 15:37 | NUR ---
got on shift at 0600, had not rec'd report on pt yet but rec'd call from 911 telecommunicator pt in asystole. Went to check on pt, pt pulseless with BiPap on. Felix PATRICIA. Turned off BiPap and removed from pt. Floor aides prepared pt for mortuary. Night LOURDES Zavala called family and Organ donor network. Family did not have a mortuary in mind. They called back at 1030 with mortuary info. mortuary was called. Family came to hospital to pick and shovel man pts belongings. pt was picked up at 1425 by mortuary.
== END 2021-05-24 14:25 | DRG 208 ==
LOC: ER 19:37 → ED HOLD 04-23 00:36 → ORTHO 4S 04-24 17:50 → CICU 2S 04-27 19:41 → ORTHO 4S 05-08 18:15
PROVIDERS: ADMIT Family Medicine; ATTEND Internal Medicine
PROC: XW033E5 Introduction of Remdesivir Anti-infective into Peripheral Vein, Percutaneous Approach, New Technology Group 5 (ICD-10-PCS; principal; 2021-04-23)
PROC: 5A0945A Assistance with Respiratory Ventilation, 24-96 Consecutive Hours, High Flow/Velocity Cannula (ICD-10-PCS; 2021-04-28)
PROC: 5A0945A Assistance with Respiratory Ventilation, 24-96 Consecutive Hours, High Flow/Velocity Cannula (ICD-10-PCS; 2021-04-30)
PROC: 5A0945A Assistance with Respiratory Ventilation, 24-96 Consecutive Hours, High Flow/Velocity Cannula (ICD-10-PCS; 2021-05-01)
PROC: 5A0945A Assistance with Respiratory Ventilation, 24-96 Consecutive Hours, High Flow/Velocity Cannula (ICD-10-PCS; 2021-05-02)
PROC: 5A0945A Assistance with Respiratory Ventilation, 24-96 Consecutive Hours, High Flow/Velocity Cannula (ICD-10-PCS; 2021-05-03)
PROC: 5A0945A Assistance with Respiratory Ventilation, 24-96 Consecutive Hours, High Flow/Velocity Cannula (ICD-10-PCS; 2021-05-04)
PROC: 5A0945A Assistance with Respiratory Ventilation, 24-96 Consecutive Hours, High Flow/Velocity Cannula (ICD-10-PCS; 2021-05-05)
PROC: 5A0935A Assistance with Respiratory Ventilation, Less than 24 Consecutive Hours, High Flow/Velocity Cannula (ICD-10-PCS; 2021-05-06)
PROC: 5A0945A Assistance with Respiratory Ventilation, 24-96 Consecutive Hours, High Flow/Velocity Cannula (ICD-10-PCS; 2021-05-06)
PROC: 5A1935Z Respiratory Ventilation, Less than 24 Consecutive Hours (ICD-10-PCS; 2021-05-06)
PROC: 5A0935A Assistance with Respiratory Ventilation, Less than 24 Consecutive Hours, High Flow/Velocity Cannula (ICD-10-PCS; 2021-05-07)
PROC: 5A0935A Assistance with Respiratory Ventilation, Less than 24 Consecutive Hours, High Flow/Velocity Cannula (ICD-10-PCS; 2021-05-08)
PROC: 5A0935A Assistance with Respiratory Ventilation, Less than 24 Consecutive Hours, High Flow/Velocity Cannula (ICD-10-PCS; 2021-05-09)
PROC: 5A0935A Assistance with Respiratory Ventilation, Less than 24 Consecutive Hours, High Flow/Velocity Cannula (ICD-10-PCS; 2021-05-10)
PROC: 5A09457 Assistance with Respiratory Ventilation, 24-96 Consecutive Hours, Continuous Positive Airway Pressure (ICD-10-PCS; 2021-05-11)
PROC: 5A0935A Assistance with Respiratory Ventilation, Less than 24 Consecutive Hours, High Flow/Velocity Cannula (ICD-10-PCS; 2021-05-14)
PROC: 5A09557 Assistance with Respiratory Ventilation, Greater than 96 Consecutive Hours, Continuous Positive Airway Pressure (ICD-10-PCS; 2021-05-15)
PROC: 5A0935A Assistance with Respiratory Ventilation, Less than 24 Consecutive Hours, High Flow/Velocity Cannula (ICD-10-PCS; 2021-05-15)
DX: U07.1 COVID-19 (principal); J12.82 Pneumonia due to coronavirus disease 2019; J80 Acute respiratory distress syndrome; N39.0 Urinary tract infection, site not specified; N17.9 Acute kidney failure, unspecified; I48.91 Unspecified atrial fibrillation; R00.0 Tachycardia, unspecified; R82.4 Acetonuria; Z66 Do not resuscitate; E86.0 Dehydration; K59.00 Constipation, unspecified; R19.7 Diarrhea, unspecified; T38.0X5A Adverse effect of glucocorticoids and synthetic analogues, initial encounter; R73.9 Hyperglycemia, unspecified; Z79.01 Long term (current) use of anticoagulants; Z90.710 Acquired absence of both cervix and uterus; Z91.040 Latex allergy status; Z88.5 Allergy status to narcotic agent; Z88.0 Allergy status to penicillin; Z88.8 Allergy status to other drugs, medicaments and biological substances; Z91.018 Allergy to other foods; Z79.899 Other long term (current) drug therapy; I46.9 Cardiac arrest, cause unspecified
CPT/HCPCS: 36415; 36600; 71045; 80053; 80061; 81001; 82803; 82948; 83036; 83605; 83615; 83735; 83880; 84100; 84134; 84145; 85007; 85018; 85025; 85379; 85610; 85730; 86140; 87040; 87077; 87081; 87088; 87186; 92508; 92616; 93970; 94660; 94760; 94799; 97110; 97112; 97161; 97530; 97535; 99291; C9113; G0378; J0696; J1100; J1170; J1200; J1650; J1815; J2270; J2920; J2930; J7030; Q0163